=== PATIENT | female | born 1970 | race African-American/Black ===

== ENCOUNTER 2020-05-28 08:14 | Day surgery (SDC) | payer OTHER, SELFPAY ==
[2020-05-28 09:29] VITALS: BMI 20.5
[2020-05-28 09:41] VITALS: PULSE 74; TEMP 36.9
--- NOTE | 2020-05-28 10:06 | P.CONAN_ITS ---
[facility] Past Medical History Medical History GERD (gastroesophageal reflux disease) Irritable bowel syndrome (IBS) Social History Social History Smoking Status: Never smoker Second Hand Smoke Exposure: No Use of substances other than those prescribed or required for medical reasons: No Advance Directives: No Exam Exam Date and Time: May 28, 2020 1006 Height,Weight and Vital Signs: Height 5 ft Weight 47.627 kg Last Vital Signs Temp 98.4 F 05/28/20 09:41 Pulse 74 05/28/20 09:41 Airway Mallampati Class: II TM Dist: >3cm Neck ROM: Full Loose/Missing/Broken Teeth: No Heart: rrr+s1s2 Lungs: cta b/l Assessment and Plan Assessment Anesthesia Assessment: Anesthesia Plan Discussed and Chart Reviewed Final Anesthetic Review NPO: Yes ASA Class: II Final Preanesthetic Review: No Changes in Pt Med Stat, Meds/Allgs Chart Reviewed, Consent Obtained/Reviewed and Anes Risks/Benef Reviewed Patient Risk: Low Procedure Risk: Low Anesthetic Plan Anesthetic Plan: MAC: Disposition: Standard PACU
--- NOTE | 2020-05-28 10:09 | P.CONAN_ITS ---
[facility] Past Medical History Medical History GERD (gastroesophageal reflux disease) Irritable bowel syndrome (IBS) Social History Social History Smoking Status: Never smoker Second Hand Smoke Exposure: No Use of substances other than those prescribed or required for medical reasons: No Advance Directives: No Meds Allergies Allergy/AdvReac Type Severity Reaction Status Date / Time No Known Allergies Allergy Verified 05/28/20 10:08 Exam Exam Date and Time: May 28, 2020 1009 Height,Weight and Vital Signs: Height 5 ft Weight 47.627 kg Last Vital Signs Temp 98.4 F 05/28/20 09:41 Pulse 74 05/28/20 09:41 Airway Mallampati Class: II TM Dist: >3cm Neck ROM: Full Loose/Missing/Broken Teeth: No Heart: rrr+s1s2 Lungs: cta b/l Assessment and Plan Assessment Anesthesia Assessment: Anesthesia Plan Discussed and Chart Reviewed Final Anesthetic Review NPO: Yes ASA Class: II Final Preanesthetic Review: No Changes in Pt Med Stat, Meds/Allgs Chart Reviewed, Consent Obtained/Reviewed and Anes Risks/Benef Reviewed Patient Risk: Low Procedure Risk: Low Anesthetic Plan Anesthetic Plan: MAC: Disposition: Standard PACU
[2020-05-28] MEDS: Lactated Ringers 1,000 ML 50 ML IVCONT (10:10)
--- NOTE | 2020-05-28 10:37 | MHC.SHP ---
Pre-Procedural Eval Section A The patient is an INPATIENT: No The History & Physical has been completed within 30 days and I have reviewed it.: No Section B Chief Complaint: Screening, heart burn Details of Present Illness: NO CHANGES FROM H&P FROM DOES HAVE CHRONIC CONSTIPATION Relevant Family History (Specify if Yes): No Relevant Social History: None Present Medications: None Medical History: No relevant PMH History of Previous Operations: No relevant previous surgery Allergies: Allergies Allergy/AdvReac Type Severity Reaction Status Date / Time No Known Allergies Allergy Verified 05/28/20 10:08 Review of Systems Sugical H&P ROS: Negative: Constitution, Cardiovascular and Respiratory and Yes, Specify: Gastrointestinal (CONSTIPATION) Exam Surgical H&P Exam: Normal: HEENT, Normal: Heart, Normal: Lungs, Normal: Extremities and Normal: Abdomen Plan Diagnosis/Plan: Unchanged Patient has been examined and remains a candidate for the planned procedure--YES
--- NOTE | 2020-05-28 10:40 | P.PCN_ITS ---
Brief Operative Note Date of procedure: 05/28/20 Pre-op diagnosis: Colon cancer screening Post-op diagnosis: other (Flat polyp ascending colon-removed; Large circumferential TUBULOVILLOUS MASS 18-20 CM) Procedure: COLONOSOCPY WITH EPI INJECTION, ORISE INJECTION, ENDO CHRISS TATOOING--ASC COLON POLYP=REMOVED ERBE HOT SNARE POLYPECTOMY IN SEGMENTS WITH HEX AND SMALL HOT SNARE. RETRIEVED, RESOLUTION CLIPPING OF BAS. Anesthesia: MAC and other (Manjit, [employer]; SAVARINI) Surgeon: Eliana Reddy Estimated blood loss (mL): 10 Pathology: other (ascending colon polyp) Condition: stable
[2020-05-28 12:18] VITALS: BP 132/68; PULSE 102; RESP 14; TEMP 35.9; O2SAT 100
[2020-05-28 12:34] VITALS: BP 139/86; PULSE 84; RESP 18; TEMP 36.2; O2SAT 100
[2020-05-28 12:55] LABS: MANUAL DIFF FLAG NO
[2020-05-28 13:12] LABS: Basophils Percent Auto 0.3 % (0-2); Eosinophils Percent Auto 0.6 % (0-4); Hematocrit 37.1 % (37-47); Hemoglobin 12.3 g/dl (12.0-16.0); Imm Gran Abs Auto 0.01 X10*3/uL (0.00-0.03); Imm Gran Pct Auto 0.2 % (0.0-0.4); Lymphocytes Absolute Auto 1.2 X10*3/uL (1.2-4.9); Lymphocytes Percent Auto 18.1 % (20-40); Mean Corpuscular HGB Conc 33.2 g/dl (31.0-35.0); Mean Corpuscular Hemoglobin 31.6 pg (27.0-33.0); Mean Corpuscular Volume 95.4 fL (80-98); Mean Platelet Volume 9.6 fL (9.4-12.3); Monocytes Absolute Auto 0.3 X10*3/uL (0.1-1.2); Monocytes Percent Auto 3.9 % (2-11); Neutrophils Absolute Auto 4.9 X10*3/uL (2.0-8.3); Neutrophils Percent Auto 76.9 % (45-73); Platelet Count 252 X10*3/uL (160-400); Red Blood Count 3.89 X10*6/uL (4.20-5.50); Red Cell Distribution Width 12.4 % (11.0-16.0); White Blood Count 6.4 X10*3/uL (4.8-10.8)
[2020-05-28 13:40] LABS: Alanine Aminotransferase 9 U/L (0-31); Albumin Level 4.2 g/dL (3.5-5.0); Alkaline Phosphatase 55 U/L (39-117); Aspartate Amino Transferase 16 U/L (5-31); Bilirubin Total 0.6 mg/dL (0.0-1.0); Blood Urea Nitrogen 11 mg/dL (9-16); Calcium 8.7 mg/dL (8.4-10.2); Creatinine Clr Calc Pharmacy 72.4; Estimated Glomerular Filt Rate > 60; Glucose Random 99 mg/dL (60-115); Total Protein 6.6 g/dL (6.5-8.0)
[2020-05-28 14:01] LABS: Anion Gap 11 (12-20); Carbon Dioxide 25 mmol/L (22-29); Chloride 105 mmol/L (96-108); Potassium 4.4 mmol/l (3.3-5.1); Sodium 137 mmol/L (135-145)
--- NOTE | 2020-05-29 19:57 | OP_ITS ---
SURGEON: Eliana Reddy MD ESTIMATED BLOOD LOSS: Minimal blood loss. COMPLICATIONS: None. ANESTHESIA: Monitored. ANESTHESIOLOGIST: Tracy Cantu CRNA and Dr. Patrice Simeon.Tracy Cantu CRNA and Dr. Patrice Simeon. ASSISTANTS: No mobile unit assistant. SPECIMENS: Specimen removed; ascending colon polyp. PREOPERATIVE DIAGNOSIS: Colon cancer screening. No history of anemia. No history of rectal bleeding. She does have some constipation. POSTOPERATIVE DIAGNOSES: Ascending colon flat polyp, large tubulovillous or villous adenomatous mass partially circumferential at 18 to 20 cm (not able to remove endoscopically.). LANDFILL GRADER: Dr. Reddy. PROCEDURES PERFORMED: Colonoscopy with hot snare polypectomy x1, segmental resection, epinephrine injection 5 mL, endo marking 3 mL, ORISE elevation 3 mL, Resolution clipping x1, Erbe cautery was used. FINDINGS: Digital rectal exam revealed no specific lesion. Video colonoscope was introduced without difficulty. It was navigated into the rectosigmoid and sigmoid. This area noted a fronding type polyp, which appeared large enough to want to review options on withdrawal of the scope. Scope slowly passed through descending, transverse, ascending colon down into the cecum. Appendiceal orifice was seen. Ileocecal valve was well seen. Several maneuvers, had to be done moving patient from her left side to her back to facilitate movement through the transverse colon and above. Prep was good to excellent. As we withdrew from the region of the cecum, there was an approximately 0.8 to 1 cm polyp noted in the proximal region of ascending colon. This area made polypectomy somewhat more difficult. Originally, the polyp was approached with submucosal epinephrine injection and blanching. There needed to be additional elevation of the flat polyp; so ORISE submucosally was injected as well (approximately 3 mL.) Hot snare Erbe cautery removal was done with the use of the Hex snare and the Small hot snare. Specimens retrieved. Due to the difficulty of managing this area, the decision was made to reappose the base of the polyp with resolution clipping. Region of the polyp was endo marked, Endo marked tattooing was done. Further withdrawal, we came back to the area of initial concern of a large polyp to realize that this was a very large somewhat creeping broad based tubulovillous or villous adenoma circumferentially taking up 2/3 of the lumen. This area was between 18 and 20 cm. It will need to be re-approached surgically. On further withdrawal, anorectal verge was clear. PLAN: Findings were discussed with the patient. Laboratory testing was done. The patient is not anemic and CEA was not elevated. I have discussed the case with Dr. Fleming, (Surgery). I will coordinate care to include pre followup visits and scheduling CAT scan of the abdomen and pelvis. GRAFT OR IMPLANTS: No grafts. CONDITION: Postprocedure, stable. Eliana Reddy MD MEN/MODL / [id number] MTDRajinder
== END 2020-05-28 13:33 | disposition home or self-care (01) ==
PROVIDERS: PCP Internal Medicine; Visit Provider Internal Medicine Gastroenterology
PROC: (CPT 45385; principal; 2020-05-28 10:10)
DX: Z12.11 Encounter for screening for malignant neoplasm of colon (principal); D12.2 Benign neoplasm of ascending colon; K63.9 Disease of intestine, unspecified; K58.1 Irritable bowel syndrome with constipation; K21.9 Gastro-esophageal reflux disease without esophagitis; K29.50 Unspecified chronic gastritis without bleeding; B96.81 Helicobacter pylori [H. pylori] as the cause of diseases classified elsewhere
CPT/HCPCS: 45385; 45381; 36415; 80048; 80053; 82040; 82247; 82378; 82465; 82977; 83615; 84075; 84100; 84155; 84450; 84460; 84478; 84550; 85025; 88305; 88342; J0171

== ENCOUNTER 2020-06-27 11:40 | Outpatient (REF) | payer OTHER, SELFPAY ==
--- NOTE | 2020-06-27 07:23 | CT_ITS ---
EXAMINATION: CT ABDOMEN AND PELVIS WITH CONTRAST CLINICAL INFORMATION: Neoplasm of sigmoid colon. COMPARISON: None TECHNIQUE: Multidetector volumetric images were obtained from the superior aspect of the liver through the pubic symphysis following administration 85 mL of Omnipaque 350 intravenous contrast. Sagittal and coronal reformatted images were obtained on the technologist's workstation. Oral contrast: Yes This CT examination was performed using dose optimization techniques as appropriate, variously including the following: *Automated exposure control *Adjustment of mA and/or kV according to patient size (this includes techniques or standardized protocols for targeted exams where dose is matched to indication/reason for exam; i.e. extremities or head) *Use of iterative reconstruction technique DLP: 204 mGy-cm FINDINGS: LUNG BASES: The visualized lung bases are unremarkable. LIVER, GALLBLADDER, AND BILIARY TREE: The liver is normal in size, shape, and attenuation. No focal hepatic lesion or biliary ductal dilatation is present. The gallbladder is unremarkable with no evidence of radiopaque gallstones, gallbladder wall thickening, or obvious pericholecystic inflammatory changes. PANCREAS: Unremarkable. SPLEEN: Unremarkable. ADRENAL GLANDS: Unremarkable. KIDNEYS AND URETERS: Multiple small bilateral peripelvic cysts noted. No urinary tract dilatation. No masses or stones. BLADDER: Unremarkable. GASTROINTESTINAL TRACT: Oral contrast was given. However, the contrast does not pass the ascending colon. There is prominent fecal material noted throughout the remaining colon. Cannot exclude mass in the mid sigmoid colon particularly given the history of benign neoplasm of sigmoid colon. See axial image 54 series 3. This area of density in particular measures approximately 3 cm transverse. The ascending colon, transverse colon, and proximal descending colon are unremarkable other than prominent amount of stool. ABDOMINAL WALL: No significant hernia is appreciated. LYMPH NODES: Normal. VASCULAR: Unremarkable. PELVIC VISCERA: Unremarkable. OSSEOUS STRUCTURES: There is some subtle subchondral lucency along the anterior left acetabulum compatible with mild arthrosis. CT/CT abdomen pelvis w con IMPRESSION: 1. Limited evaluation of the sigmoid given the prominent amount of stool and lack of contrast. Cannot exclude mass in the sigmoid particularly given the patient's history. 2. Bilateral peripelvic cysts in the kidneys. 3. Mild arthrosis of the left hip joint.
[2020-06-27] MEDS: iohexoL 350 MG/ML 100 ML INFUS..BTL IV (09:42)
== END 2020-06-27 11:41 | disposition home or self-care (01) ==
LOC: HO.CT 11:40
PROVIDERS: PCP Internal Medicine; Visit Provider Internal Medicine Gastroenterology
DX: D12.5 Benign neoplasm of sigmoid colon (principal)
CPT/HCPCS: 74177; Q9967

== ENCOUNTER → 2020-07-01 09:37 | Outpatient (BNVA) | payer OTHER, SELFPAY | PROVIDERS: PCP Internal Medicine; Referring Provider Internal Medicine; Visit Provider Surgery | DX: Z76.89 Persons encountering health services in other specified circumstances (principal) ==

== ENCOUNTER 2020-07-03 08:41 | Outpatient (REF) | payer OTHER, SELFPAY ==
[2020-07-03 11:08] LABS: MANUAL DIFF FLAG NO
[2020-07-03 11:19] LABS: Basophils Percent Auto 0.5 % (0-2); Eosinophils Absolute Auto 0.1 X10*3/uL (0.0-0.4); Eosinophils Percent Auto 2.1 % (0-4); Hematocrit 41.3 % (37-47); Hemoglobin 13.3 g/dl (12.0-16.0); Lymphocytes Absolute Auto 1.2 X10*3/uL (1.2-4.9); Lymphocytes Percent Auto 28.4 % (20-40); Mean Corpuscular HGB Conc 32.2 g/dl (31.0-35.0); Mean Corpuscular Volume 96.3 fL (80-98); Monocytes Absolute Auto 0.2 X10*3/uL (0.1-1.2); Monocytes Percent Auto 5.6 % (2-11); Neutrophils Absolute Auto 2.7 X10*3/uL (2.0-8.3); Neutrophils Percent Auto 63.4 % (45-73); Platelet Count 268 X10*3/uL (160-400); Red Blood Count 4.29 X10*6/uL (4.20-5.50); Red Cell Distribution Width 12.7 % (11.0-16.0); White Blood Count 4.3 X10*3/uL (4.8-10.8)
[2020-07-03 11:27] LABS: Prothrombin Time 11.7 SEC (10.8-13.0)
[2020-07-03 11:30] LABS: Partial Thromboplastin Time 43.8 SEC (24.1-38.0)
[2020-07-03 11:49] LABS: Cholesterol 245 mg/dL; Glucose Fasting 90 mg/dL (60-99); HDL Cholesterol 104 mg/dL; LDL Cholesterol Calculated 132 mg/dl; Triglycerides 47 mg/dL
[2020-07-03 12:04] LABS: Vitamin D 25-OH Total 23.3 ng/mL (>30)
== END 2020-07-03 08:42 | disposition home or self-care (01) ==
LOC: HO.HMGCLDS 08:41
PROVIDERS: PCP Internal Medicine; Visit Provider Internal Medicine
DX: Z00.01 Encounter for general adult medical examination with abnormal findings (principal); K63.5 Polyp of colon; Z78.0 Asymptomatic menopausal state
CPT/HCPCS: 36415; 80061; 82306; 82947; 85025; 85610; 85730

== ENCOUNTER 2020-07-23 09:13 | Inpatient (IN) | payer OTHER, SELFPAY ==
--- NOTE | 2020-07-18 | ECG_ITS ---
Test Reason : CP Blood Pressure : / mmHG Vent. Rate : 078 BPM Atrial Rate : 078 BPM P-R Int : 120 ms QRS Dur : 078 ms QT Int : 386 ms P-R-T Axes : 060 073 049 degrees QTc Int : 440 ms Normal sinus rhythm Normal ECG When compared with ECG of 21-APR-2012 11:33, No significant change was found Referred By: Caitlyn Guillermo Electronically Signed By:ALL RIDDLE MD
--- NOTE | 2020-07-18 11:55 | P.CONAN_ITS ---
Documented by User: Caitlyn Giullermo 07/18/20 12:42 HPI - Anesthesia Eval Consult details Narrative: 50yo F for Bowel Resection Laparoscopic, Hand Assisted, Poss Stoma s/p Screening colonoscopy 05/28/20 with MAC Patient reports sensitive to pain medication. I require less than most people . [facility] Past Medical History Medical History Annual visit for general adult medical examination with abnormal findings GERD (gastroesophageal reflux disease) Irritable bowel syndrome (IBS) Menopause Ovarian cyst Sigmoid polyp Family History Family History Father No problems noted. Mother No problems noted. Son No problems noted. Daughter No problems noted. Family history of problems with anesthesia: No Surgical History Surgical History History of esophagogastroduodenoscopy (EGD) Hx of colonoscopy No pertinent past surgical history History of Problems with Anesthesia: No (Only MAC anesthesia) Social History Social History Are you a primary home care music therapist to a significant other at home: No Do you presently have visiting nurse or other home services: No Alcohol intake: never Smoking Status: Never smoker Second Hand Smoke Exposure: No Use of substances other than those prescribed or required for medical reasons: No Have you been hit, kicked, punched, or otherwise hurt by someone within the past year? If so, by whom?: No Spiritual Healthcare Practices: none Scientology Healthcare Practices: none Cultural Healthcare Practices: none Advance Directives: No Advance Directives Information Provided: No Advance Directives on File: No Recently lost weight without trying: No Narrative Narrative: No recent illness. >4 mets with walking. Meds Allergies Allergy/AdvReac Type Severity Reaction Status Date / Time No Known Allergies Allergy Verified 07/18/20 12:25 Exam Exam Date and Time: July 18, 2020 1155 Pertinent Lab Results Pertinent Lab Results: Laboratory Tests 05/28/20 07/03/20 12:47 08:47 WBC 4.3 L Hgb 13.3 Hct 41.3 Plt Count 268 Sodium 137 Potassium 4.4 Chloride 105 Carbon Dioxide 25 BUN 11 Creatinine 0.66 Airway Mallampati Class: I TM Dist: >3cm Neck ROM: Full Loose/Missing/Broken Teeth: Yes (1xmolar) Heart: RRR Lungs: CTAB Assessment and Plan Assessment Anesthesia Assessment: Anesthesia Plan Discussed and PAT Visit Documented by User: Sabiha King 07/23/20 10:40 PMFSH Past Medical History Medical History Annual visit for general adult medical examination with abnormal findings GERD (gastroesophageal reflux disease) Irritable bowel syndrome (IBS) Menopause Ovarian cyst Sigmoid polyp Family History Family History Father No problems noted. Mother No problems noted. Son No problems noted. Daughter No problems noted. Surgical History Surgical History History of esophagogastroduodenoscopy (EGD) Hx of colonoscopy No pertinent past surgical history Social History Social History Are you a primary home care music therapist to a significant other at home: No Do you presently have visiting nurse or other home services: No Alcohol intake: never Smoking Status: Never smoker Second Hand Smoke Exposure: No Use of substances other than those prescribed or required for medical reasons: No Have you been hit, kicked, punched, or otherwise hurt by someone within the past year? If so, by whom?: No Spiritual Healthcare Practices: none Scientology Healthcare Practices: none Cultural Healthcare Practices: none Advance Directives: No Advance Directives Information Provided: No Advance Directives on File: No Recently lost weight without trying: No Meds Allergies Allergy/AdvReac Type Severity Reaction Status Date / Time No Known Allergies Allergy Verified 07/18/20 12:25 Exam Height,Weight and Vital Signs: Height 5 ft Weight 48.5 kg Vital Signs Temp Pulse Resp BP Pulse Ox 07/23/20 09:07 98.4 F 95 16 142/86 H 100 Pertinent Lab Results Pertinent Lab Results: Lab Results 07/18/20 07/23/20 Range/Units 12:36 08:52 COVID-19 (KEN) Negative (Negative) COVID-19 Clin Com See Note Blood Type O Positive Antibody Screen NEGATIVE Assessment and Plan Assessment Anesthesia Assessment: Anesthesia Plan Discussed and Chart Reviewed Final Anesthetic Review NPO: Yes ASA Class: II Final Preanesthetic Review: No Changes in Pt Med Stat, Meds/Allgs Chart Reviewed, Consent Obtained/Reviewed and Anes Risks/Benef Reviewed Patient Risk: Low Procedure Risk: Intermediate Anesthetic Plan Anesthetic Plan: GA Disposition: Standard PACU
[2020-07-18 11:56] VITALS: BP 137/67; PULSE 81; RESP 16; O2SAT 100; BMI 20.9
[2020-07-23] VITALS (10 sets, daily range): BP systolic 113–154; BP diastolic 54–91; PULSE 66–95; RESP 16–19; TEMP 36–36.9; O2SAT 96–100
--- NOTE | 2020-07-23 08:21 | PC.NURSE ---
patient finished the po prep but had vomited some. also the day before antibiotics were taken and she vomited those as well .md guy aware. do not give the erythromycin or the neomycin per md guy.
[2020-07-23 09:26] LABS: COVID-19 Test Negative (Negative)
[2020-07-23] MEDS: Lactated Ringers 1,000 ML 100 ML IVCONT (09:26)
--- NOTE | 2020-07-23 12:04 | MHC.SHP ---
Pre-Procedural Eval Section B Chief Complaint: Sigmoid polyp Allergies: Allergies Allergy/AdvReac Type Severity Reaction Status Date / Time No Known Allergies Allergy Verified 07/18/20 12:25 Plan Patient has been examined and remains a candidate for the planned procedure
--- NOTE | 2020-07-23 12:17 | PC.NURSE ---
patient has been delayed due to md brooks being in another case. patient aware of plan and continues to rest comfortably.
--- NOTE | 2020-07-23 15:16 | PM.OP ---
Brief Operative Note Date of Service: 07/23/20 Pre-op diagnosis: sigmoid polyp Post-op diagnosis: same Procedure: hand assisted laparoscopic sigmoid resection Surgeon: PER BLANCAS MD Anesthesia: LAURA Clinician Oncology: Joyce Escobedo Estimated blood loss (mL): 50 IV fluids (mL): 1,100 Urine output (mL): 75 Pathology: other (sigmoid) Condition: stable Disposition: PACU
[2020-07-23] MEDS: HYDROmorphone HCl 0.5 MG/0.5 ML SYRINGE 0.25 MG IVPUSH ×2 (15:40→15:45)
--- NOTE | 2020-07-23 16:40 | PM.EVENT ---
Event Note Date of Service: 07/23/20 Event Note: seen postop underwent sigmoid resection earlier says she is ok has incisional pain, appropriate to procedure stable VS Singh clear, good OU pain mgt ok for clear liquids dw her daughter Soledad over the phone
[2020-07-23] MEDS: 0.9 % Sodium Chloride Flush 3 ML SYRINGE IVFLUSH (17:08)
[2020-07-23] MEDS: Lactated Ringers 1,000 ML 80 ML IVCONT (17:08)
--- NOTE | 2020-07-24 00:06 | OP_ITS ---
SURGEON: Alejandro Fleming MD INDICATIONS: The patient is a [id number] who had undergone colonoscopy for screening with Dr. Reddy which showed a circumferential lesion in the sigmoid somewhere around the level 18 cm. Review of her records showed that no biopsy was done, but the mass was noted to be circumferential and not endoscopically resectable. She was referred to me. I had a long discussion with the patient about the procedure of resection. Discussed with the technique of hand-assisted laparoscopic sigmoid resection with possible conversion to open and possible stoma. I explained to her the risks including, but not limited to bleeding, infections, anastomotic leak, abscesses, blood clots, pneumonia, bowel injury, obstruction, as well as benefits and alternatives. She understood and had given consent. Her daughter, Slim, was involved during the discussion. PREOPERATIVE DIAGNOSIS: Sigmoid mass, no biopsies, done by previous endoscopies. POSTOPERATIVE DIAGNOSIS: Sigmoid mass, no biopsies, done by previous endoscopies. PROCEDURE PERFORMED: ESTIMATED BLOOD LOSS: COMPLICATIONS: ANESTHESIA: ASSISTANTS: SPECIMENS: PROCEDURES PERFORMED: Hand assisted laparoscopic sigmoid resection with mobilization of splenic flexure, Intraoperative flexible sigmoidoscopy. ARCHERY EQUIPMENT REPAIRER: Joyce Escobedo PA-C. DESCRIPTION OF PROCEDURE: The patient was brought to the operating room and placed in modified lithotomy position in the operating room under general anesthesia via endotracheal tube. A Singh catheter was inserted. The abdomen and the perineum were prepped and draped in usual sterile fashion. A surgical time-out was done. The patient received Cefotan 2 g IV preoperatively. A short infraumbilical midline incision made in the skin using blade 15, carried down to full-thickness skin and subcutaneous fat down to the fascia. The fascia was incised. The peritoneum was entered. The fascial incision was lengthened to optimize the skin incision. An Laron wound retractor was then positioned. A hand port was placed, we inter plated through the hand port to a pressure of 15 mmHg. A 10 mm 30-degree camera was inserted through the hand ports. With laparoscopic visualization, we inserted 10 mm port in the epigastric area as well as the right lower quadrant through a small stab incision. The port on the hand port was then removed. The patient was placed in head down in right side down position. My left hand was then placed with the GelPort. We proceeded with laparoscopic visualization through the epigastric port. We proceeded to gently reflect all the bowel loops away from the pelvis. By doing so, I was able to visualize the rectum, sigmoid, and to follow this all the way to the left colon. There was noted to have circumferential lesion palpable in the what appeared to be mid to distal sigmoid. At this point, with all the bowel loops, we retracted away from the pelvis, proceeded to open up the peritoneum of the right side to the right of the rectosigmoid. This was achieved using the LigaSure, we proceeded to continue to divide this peritoneum distally to the proximal rectum. Proceeded to then divide the peritoneum more proximally towards the sigmoid. By doing so, we were able to achieve mobilization of the rectosigmoid and the proximal sigmoid. We proceeded to open the planes of the peritoneum as well on the left side in doing the same technique. I then proceeded to mobilize the rest of the sigmoid from the pelvic sidewall. This was achieved using the LigaSure. We divided the ligamentous attachment along the white line of Toldt as well all the way to the left colon. By doing so, we were able to open up the planes of the retroperitoneum of the left colon and achieve good mobilization all the way to the sigmoid. We tested the length of the sigmoid that we resected and appeared that we had enough length; however to make sure that there was no tension, I proceeded to continue to divide the rest of the ligamentous attachments all the way to the splenic flexure using the LigaSure with care being taken, so as to make sure that we were away from the wall of the splenic flexure. We achieved more length from the left colon using this. It appeared that we had good enough mobilization and length of the entire left colon, flexure as well as the sigmoid. We retracted the sigmoid to put this on rectosigmoid on stretch. We proceeded to continue to bluntly dissect the rest of the peritoneum and mobilize more of the rectosigmoid. We were able to clearly define the mesorectum and we appeared to create a mesenteric defect at the rectosigmoid area using blunt dissection and sharp dissection with the LigaSure. We made sure that both sides of the rectosigmoid laterally were well mobilized. We then proceeded to apply the Endo ZOHREH 60 mm stapler through the right lower quadrant port and proceeded to position this across the mesenteric defect. This was 60 mm ZOHREH laparoscopic stapler. We have difficulty however with including the entire rectosigmoid within the staple lines. I therefore, opened up, I removed the GelPort and applied retractor on the abdominal wall to allow me to angle the ZOHREH stapler well across the rectosigmoid, but this was fired. However, there was lot of thick attachment of mesorectum that was not resected with the initial stapler, so we had to fire a 30 mm stapler across this twice to complete the transection of the thick mesorectum. We were able to pull up the entire sigmoid out into the field as this had been previously mobilized all the way to the splenic flexure. We appeared to have enough length to resect the sigmoid near the left colon and create an end-to-end anastomosis. I chose a point of dissection in the proximal sigmoid near the left colon. The sigmoid appeared to be redundant. I transected this using a ZOHREH 60 mm stapler along the point of dissection that was chosen through a mesenteric defect. We then proceeded to divide the rest of the peritoneum to connect the proximal distal segments. After incising the peritoneum, we completed division of the mesosigmoid by generous division of the mesosigmoid along with its lymph node basin. I had to apply the LigaSure twice on what appeared to be LUÍS to achieve good hemostasis. We then proceeded. We were able to complete the separation of the entire sigmoid, so we will send this as a specimen for immediate gross exam The prepared for our end-to-end anastomosis. I applied Allis clamps on the staple line of the proximal sigmoid/left colon stump. I divided this and retracted the wall with Allis clamps again. I dilated this with dilator starting from 25 mm to 28 mm. I then chose a 28 mm EEA stapler apparatus. I created my pursestring anastomosis with nylon 2-0 stitch. I positioned the anvil through the stump and tightened the pursestring around the anvil. This was then positioned back into the peritoneal cavity. The industrial hire sales assistant, KALIN Shipley, then proceeded to apply the dilator to the rectal stump. The dilator was placed first and we were able to see the stump well without any difficulty. She then replaced the dilator with the EEA stapler. This was advanced gently all the way to the end of the stump. With constant pressure on the rectal stump, we proceeded to then connect the anvil to the spike of the EEA stapler after this had been activated through the stump. We locked the anvil into the spike. EEA stapler was then tightened by the first aid teacher all the way. The stapler was fired to complete the anastomosis, the EEA stapler was removed and examined. Two anastomotic circumferential full donuts were seen. With the laparoscope in place, proceeded to immerse the anastomotic line with irrigation fluid. We then used the bulb syringe to insufflate through the rectum until the remaining sigmoid/left colon was distended. We observed for evidence of any anastomotic leak. There was no bubbling seen despite insufflation multiple times with the bulb syringe. I then proceeded to examine the staple line with flexible sigmoidoscope. The first aid teacher had this procedure done by inserting the scope through the anal orifice and gently advancing the patient until we were able to see the staple line. Photographic documentation of the staple line was done, but this appeared to be patent and viable without any evidence of ischemia. She then withdrew the scope and insufflated with withdrawal. We then proceeded to examine again the entire abdominal peritoneal cavity laparoscopically. I checked the anastomosis and there was no tension on this. There was no twisting of the left colon towards the anastomotic site. We copiously irrigated the pelvis and observed for hemostasis. There were no signs of any bleeding or any bowel injury. The left gutter was also noted to be dry and there was no bleeding from the area of the splenic flexure. We observed all four quadrants and there was no other pathology. We received a phone call from the pathologist confirming the presence of the the specimen that was submitted. Margins appeared to be clear and adequate grossly. Once hemostasis was ensured, proceeded to then desufflate the port sites. I removed the GelPort and removed all ports under vision earlier with the laparoscope. I then proceeded to remove the Laron wound retractor and applied Johanny clamps on the fascia. Using the Johanny clamps as a guide for traction, proceeded to then close the fascia with running Maxon 1 stitch. We irrigated the subcutaneous layer. All incisions were closed with skin sera. All incisions were infiltrated with Marcaine 0.5% for postop analgesia. The procedure was then completed. The patient tolerated the procedure well. There were no complications noted. Initial and final counts of sponges and instruments were correct. Estimated blood loss about 25 mL. The patient extubated without difficulty and transferred to recovery room stable with vital signs. MD KENNETH Rachel/ADALBERTO / [id number] MTDD
[2020-07-24] MEDS: Lactated Ringers 1,000 ML 80 ML IVCONT ×2 (03:06→14:43)
[2020-07-24 03:48] VITALS: BP 116/67; PULSE 84; RESP 19; TEMP 36.3; O2SAT 98
[2020-07-24 07:12] LABS: MANUAL DIFF FLAG NO
[2020-07-24 07:31] LABS: Basophils Percent Auto 0.1 % (0-2); Imm Gran Abs Auto 0.03 X10*3/uL (0.00-0.03); Imm Gran Pct Auto 0.3 % (0.0-0.4); Lymphocytes Percent Auto 8.7 % (20-40); Mean Corpuscular HGB Conc 33.3 g/dl (31.0-35.0); Mean Corpuscular Hemoglobin 31.6 pg (27.0-33.0); Mean Corpuscular Volume 94.8 fL (80-98); Mean Platelet Volume 9.9 fL (9.4-12.3); Monocytes Absolute Auto 0.7 X10*3/uL (0.1-1.2); Monocytes Percent Auto 5.9 % (2-11); Neutrophils Absolute Auto 9.6 X10*3/uL (2.0-8.3); Platelet Count 226 X10*3/uL (160-400); Red Blood Count 3.48 X10*6/uL (4.20-5.50); Red Cell Distribution Width 12.9 % (11.0-16.0); White Blood Count 11.3 X10*3/uL (4.8-10.8)
[2020-07-24 07:35] VITALS: BP 140/70; PULSE 90; RESP 16; TEMP 36.4; O2SAT 99
--- NOTE | 2020-07-24 08:00 | PM.PNGS ---
Subjective Subjective Date of Service: 07/24/20 <Joyce Escobedo PA-C - Last Filed: 07/24/20 08:03> 07/24/20 <Alejandro Fleming MD - Last Filed: 07/24/20 08:17> Interval history: Feels sore this morning but comfortable with analgesics. Tolerated small amount of juice last night. Denies nausea, vomiting or passing flatus. Has not been OOB. <Joyce Escobedo PA-C - Last Filed: 07/24/20 08:03> Physical Exam Vital Signs: Vital Signs: Last Vital Signs Temp 97.5 F 07/24/20 07:35 Pulse 90 07/24/20 07:35 Resp 16 07/24/20 07:35 BP 140/70 H 07/24/20 07:35 Pulse Ox 99 07/24/20 07:35 Body Mass Index 20.9 <JAVIER Shipley Last Filed: 07/24/20 08:03> Const: General: healthy appearing, comfortable, no acute distress and alert <Joyce Escobedo PA-C - Last Filed: 07/24/20 08:03> Orientation/consciousness: patient oriented x3 <JAVIER Shipley Last Filed: 07/24/20 08:03> Eyes: Sclerae: sclerae normal <JAVIER Shipley Last Filed: 07/24/20 08:03> Resp: Effort & Inspection: normal respiratory effort <JAVIER Shipley Last Filed: 07/24/20 08:03> GI: Inspection: No distended and Yes incision (dressings C/d/i) <JAVIER Shipley Last Filed: 07/24/20 08:03> Palpation (GI): Soft to palpation, Tenderness to palpation present (GI) (mild, incisional), no guarding, not rigid and No Rebound tenderness present <JAVIER Shipley Last Filed: 07/24/20 08:03> Skin: General skin exam: no rashes or lesions noted <JAVIER Shipley Last Filed: 07/24/20 08:03> Neuro: General: patient oriented x3 <Joyce Escobedo PA-C - Last Filed: 07/24/20 08:03> Extrem: General: Yes no clubbing, cyanosis or edema <JAVIER Shipley Last Filed: 07/24/20 08:03> Progress Note: A&P Assessment and plan (1) Sigmoid polyp: Status: Acute <Joyce Escobedo PA-C - Last Filed: 07/24/20 08:03> (2) S/P laparoscopic-assisted sigmoidectomy: Status: Acute <Joyce Escobedo PA-C - Last Filed: 07/24/20 08:03> Assessment and Plan: POD #1 s/p WEI sigmoid resection. Doing well post op, comfortable. VSS. Abd exam benign with appropriate post op tenderness, dressings c/d/i. AM labs pending. D/c freedman. Cont clear liquids for now. Encouraged OOB and ambulation. Await return of GI fxn. Await pathology. <Joyce Escobedo PA-C - Last Filed: 07/24/20 08:03> Says she has good pain control Incisional pain, appropriate to procedure Abdomen soft Clinically looks well Await return of GI function Ambulate Instructed on incentive spirometry Patient seen and examined -agree with KALIN Escobedo <Alejandro Fleming MD - Last Filed: 07/24/20 08:17> Fall Risk Details Current Medications: Current Medications Generic Name Dose Route Start Last Admin Trade Name Freq PRN Reason Stop Dose Admin Heparin Sodium (Porcine) 5,000 unit 07/24/20 18:00 Heparin Sodium,Porcine 5,000 Unit/Ml Vial SUBCUT Q8H ENRIQUE Hydromorphone HCl 0.25 mg 07/23/20 15:35 07/23/20 15:45 Hydromorphone Hcl 0.5 Mg/0.5 Ml Syringe IVPUSH 0.25 mg Q5M PRN Administration Pain, Severe (Pain Scale 7-10) Lactated Ringer's 1,000 mls @ 80 mls/hr 07/23/20 16:31 07/24/20 03:06 Lr IVCONT 80 mls/hr .[id number] ENRIQUE Administration Acetaminophen 1,000 mg in 100 mls @ 400 mls/hr 07/23/20 21:00 07/24/20 03:19 Ofirmev IV Infused Q6H ENRIQUE Infusion Morphine Sulfate 3 mg 07/23/20 16:31 Morphine Sulfate 2 Mg/Ml Cartridge IVPUSH Q3H PRN Pain, Severe (Pain Scale 7-10) Ondansetron HCl 4 mg 07/23/20 16:31 Ondansetron Hcl 4 Mg/2 Ml Vial IVPUSH Q8H PRN Nausea and Vomiting Oxycodone HCl 5 mg 07/23/20 16:31 Oxycodone Hcl Immed Release 5 Mg Tablet PO Q4H PRN Pain, Moderate (Pain Scale 4-6 Sodium Chloride 3 ml 07/23/20 16:31 07/24/20 07:44 0.9 % Sodium Chloride Flush 3 Ml Syringe IVFLUSH Not Given QSHIFT ENRIQUE <Joyce Escobedo PA-C - Last Filed: 07/24/20 08:03> Time Spent With Patient Time: Total time spent is greater than 50% in coordination of care (as documented) at patient's floor/unit and/or counseling patient: <Joyce Escobedo PA-C - Last Filed: 07/24/20 08:03> Time with patient: 15 - 24 minutes <Joyce Escobedo PA-C - Last Filed: 07/24/20 08:03>
[2020-07-24 08:05] LABS: Anion Gap 13 (12-20); Blood Urea Nitrogen 7 mg/dL (9-16); Calcium 8.4 mg/dL (8.4-10.2); Carbon Dioxide 23 mmol/L (22-29); Chloride 107 mmol/L (96-108); Creatinine Clr Calc Pharmacy 73.5; Estimated Glomerular Filt Rate > 60; Glucose Fasting 112 mg/dL (60-99); Sodium 139 mmol/L (135-145)
--- NOTE | 2020-07-24 08:05 | PC.NURSE ---
JOSÉ MIGUEL SEARS. DTV #[id number]
[2020-07-24 11:22] VITALS: BP 127/77; PULSE 76; RESP 16; TEMP 36.4; O2SAT 98
--- NOTE | 2020-07-24 12:33 | HO.POSTANES ---
Post Anesthesia Evaluation Post Anesthesia Evaluation Vital Signs: Vital Signs Temp Pulse Resp BP Pulse Ox 07/24/20 11:22 97.5 F 76 16 127/77 98 07/24/20 07:35 97.5 F 90 16 140/70 H 99 07/24/20 03:48 97.4 F 84 19 116/67 98 Anesthesia: General Endotracheal-GETA Mental Status: Awake Pain Control: Satisfactory Nausea/Vomiting: None Hydration: Adequate Anesthesia-Related Issues: No Anes. Related Issues
--- NOTE | 2020-07-24 14:56 | MHC.CM.PN ---
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 PT REPORTS SHE CONT'S TO SEE PCP BARBARA BURGOS ON [address] IN [place], PT DOES REPORT INTEREST IN HCP AND WOULD LIKE TO COMPLETE BEFORE DISCHARGE. CURRENT DISCHARGE PLAN IS HOME W/NO SERVICES.
[2020-07-24 15:23] VITALS: BP 136/82; PULSE 85; RESP 17; TEMP 36.9; O2SAT 100
[2020-07-24] MEDS: Heparin Sodium,Porcine 5,000 UNIT/ML VIAL 5000 UNIT SUBCUT (17:14)
[2020-07-24 19:30] VITALS: BP 148/77; PULSE 70; RESP 17; TEMP 37.1; O2SAT 100
[2020-07-24] MEDS: 0.9 % Sodium Chloride Flush 3 ML SYRINGE IVFLUSH (20:58)
[2020-07-25 00:03] VITALS: BP 113/68; PULSE 73; RESP 16; TEMP 37.1; O2SAT 98
[2020-07-25] MEDS: Heparin Sodium,Porcine 5,000 UNIT/ML VIAL 5000 UNIT SUBCUT ×3 (01:17→17:20)
[2020-07-25] MEDS: oxyCODONE HCl Immed Release 5 MG TABLET PO ×2 (01:17→23:02)
[2020-07-25 04:00] VITALS: BP 98/54; PULSE 73; RESP 16; TEMP 36.9; O2SAT 97
[2020-07-25] MEDS: Lactated Ringers 1,000 ML 80 ML IVCONT ×2 (05:28→16:04)
--- NOTE | 2020-07-25 07:58 | PM.PNGS ---
Subjective Subjective Date of Service: 07/25/20 <Joyce Escobedo PA-C - Last Filed: 07/25/20 08:02> 07/25/20 <Alejandro Fleming MD - Last Filed: 07/25/20 11:01> Interval history: Feels ok this morning. Had a difficulty time sleeping due to pain. Reports pain at flanks/upper abdomen which extends to shoulders. Has been OOB and ambulating. Tolerating clear liquids without N/V. Passing flatus. <Joyce Escobedo PA-C - Last Filed: 07/25/20 08:02> Physical Exam Vital Signs: Vital Signs: Last Vital Signs Temp 98.4 F 07/25/20 04:00 Pulse 73 07/25/20 04:00 Resp 16 07/25/20 04:00 BP 98/54 L 07/25/20 04:00 Pulse Ox 97 07/25/20 04:00 Body Mass Index 20.9 <Joyce Escobedo PA-C - Last Filed: 07/25/20 08:02> Const: General: comfortable, no acute distress and alert <Joyce Escobedo PA-C - Last Filed: 07/25/20 08:02> Orientation/consciousness: patient oriented x3 <JAVIER Shipley Last Filed: 07/25/20 08:02> Eyes: Sclerae: sclerae normal <Joyce Escobedo PA-C - Last Filed: 07/25/20 08:02> Resp: Effort & Inspection: normal respiratory effort <Joyce Escobedo PA-C - Last Filed: 07/25/20 08:02> Cardio: Rate: regular rate <JAVIER Shipley Last Filed: 07/25/20 08:02> GI: Inspection: No distended and Yes incision (clean) <JAVIER Shipley Last Filed: 07/25/20 08:02> Palpation (GI): Soft to palpation, Tenderness to palpation present (GI) (mild, incisional), no guarding and No Rebound tenderness present <JAVIER Shipley Last Filed: 07/25/20 08:02> Skin: General skin exam: no rashes or lesions noted <Joyce Escobedo PA-C - Last Filed: 07/25/20 08:02> Neuro: General: patient oriented x3 <JAVIER Shipley Last Filed: 07/25/20 08:02> Extrem: General: Yes no clubbing, cyanosis or edema <Joyce Escobedo PA-C - Last Filed: 07/25/20 08:02> Progress Note: A&P Assessment and plan (1) S/P laparoscopic-assisted sigmoidectomy: Status: Acute <JAVIER Shipley Last Filed: 07/25/20 08:02> Assessment and Plan: POD #2 WEI sigmoid resection. Continues to do well post op but complaining of referred pain. VSS. Abd exam benign and incisions clean. Will advance to full liquids. Encouraged OOB and ambulation of halls. Await pathology. <Joyce Escobedo PA-C - Last Filed: 07/25/20 08:02> Doing well Says she has passed small amounts of flatus Pain control adequate She describes pain on the left flank radiating to the left shoulder consistent with referred pain Ambulating Looks well Await path seen and examined -I agree with KALIN Escobedo daughter Soledad hair <Alejandro Fleming MD - Last Filed: 07/25/20 11:01> (2) Sigmoid polyp: Status: Acute <Joyce Escobedo PA-C - Last Filed: 07/25/20 08:02> Fall Risk Details Current Medications: Current Medications Generic Name Dose Route Start Last Admin Trade Name Freq PRN Reason Stop Dose Admin Heparin Sodium (Porcine) 5,000 unit 07/24/20 18:00 07/25/20 01:17 Heparin Sodium,Porcine 5,000 Unit/Ml Vial SUBCUT 5,000 unit Q8H ENRIQUE Administration Lactated Ringer's 1,000 mls @ 80 mls/hr 07/23/20 16:31 07/25/20 05:28 Lr IVCONT 80 mls/hr .[id number] ENRIQUE Administration Acetaminophen 1,000 mg in 100 mls @ 400 mls/hr 07/23/20 21:00 07/25/20 03:59 Ofirmev IV Infused Q6H ENRIQUE Infusion Morphine Sulfate 3 mg 07/23/20 16:31 Morphine Sulfate 2 Mg/Ml Cartridge IVPUSH Q3H PRN Pain, Severe (Pain Scale 7-10) Ondansetron HCl 4 mg 07/23/20 16:31 Ondansetron Hcl 4 Mg/2 Ml Vial IVPUSH Q8H PRN Nausea and Vomiting Oxycodone HCl 5 mg 07/23/20 16:31 07/25/20 01:17 Oxycodone Hcl Immed Release 5 Mg Tablet PO 5 mg Q4H PRN Administration Pain, Moderate (Pain Scale 4-6 Sodium Chloride 3 ml 07/23/20 16:31 07/24/20 20:58 0.9 % Sodium Chloride Flush 3 Ml Syringe IVFLUSH 3 ml QSHIFT ENRIQUE Administration <Joyce Escobedo PA-C - Last Filed: 07/25/20 08:02> Time Spent With Patient Time: Total time spent is greater than 50% in coordination of care (as documented) at patient's floor/unit and/or counseling patient: <Joyce Escobedo PA-C - Last Filed: 07/25/20 08:02> Time with patient: 15 - 24 minutes <Joyce Escobedo PA-C - Last Filed: 07/25/20 08:02>
[2020-07-25 08:00] VITALS: BP 126/70; PULSE 77; RESP 16; TEMP 36.2; O2SAT 100
[2020-07-25 11:35] VITALS: BP 149/73; PULSE 72; RESP 15; TEMP 36.3; O2SAT 100
--- NOTE | 2020-07-25 13:55 | MHC.CM.PN ---
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 MET WITH PATIENT FEELING SOME WHAT BETTER TODAY , PAIN MORE MANAGEABLE , DID NOT SLEEP WELL LAST NIGHT SECONDARY TO PAIN, PASSING FLATUS AND OOB AND Ambulating s/p hand assist laparoscopic sigmoid resection and mobilization,of splenic flexure inta operative flexible sigmoidoscopy , pathology pending discharge plan continue to follow for any changes in discharge needs but anticipate home no services (has siater and daughter aviable for support
--- NOTE | 2020-07-25 14:56 | MHC.CM.PN ---
MET W/PT TO ASSIST W/HCP, PT DID NOT HAVE ALL CONTACT INFO SHE NEEDED, PT CONTACTING DAUGHTER FOR INFO, RN WILL CHECK IN W/PT TO SEE IF SHE RECEIVED CONTACTY INFO SHE NEEDED. PT'S PLAN CONT'S TO BE HOME W/NO SERVICES, FAMILY TO TRANSPORT PT UPON D/C.
[2020-07-25 15:53] VITALS: BP 140/79; PULSE 73; RESP 18; TEMP 36.3; O2SAT 100
[2020-07-25 19:12] VITALS: BP 115/70; PULSE 78; RESP 18; TEMP 36.6; O2SAT 100
[2020-07-25] MEDS: 0.9 % Sodium Chloride Flush 3 ML SYRINGE IVFLUSH (21:31)
[2020-07-26 00:37] VITALS: BP 119/66; PULSE 78; RESP 14; TEMP 36.6; O2SAT 99
[2020-07-26] MEDS: Heparin Sodium,Porcine 5,000 UNIT/ML VIAL 5000 UNIT SUBCUT ×2 (03:09→10:54)
[2020-07-26 04:00] VITALS: BP 132/63; PULSE 67; RESP 14; TEMP 36.2; O2SAT 99
[2020-07-26 07:33] LABS: Hematocrit 28.6 % (37-47); Mean Corpuscular HGB Conc 33.2 g/dl (31.0-35.0); Mean Corpuscular Hemoglobin 31.9 pg (27.0-33.0); Mean Platelet Volume 10.4 fL (9.4-12.3); Platelet Count 183 X10*3/uL (160-400); Red Blood Count 2.98 X10*6/uL (4.20-5.50); Red Cell Distribution Width 12.9 % (11.0-16.0); White Blood Count 5.1 X10*3/uL (4.8-10.8)
[2020-07-26 07:35] LABS: Hemoglobin 9.5 g/dl (12.0-16.0)
[2020-07-26 08:00] VITALS: BP 138/68; PULSE 73; RESP 15; TEMP 36.3; O2SAT 100
--- NOTE | 2020-07-26 08:01 | PM.PNGS ---
Subjective Subjective Date of Service: 07/26/20 <Joyce Escobedo PA-C - Last Filed: 07/26/20 08:05> 07/26/20 <Alejandro Fleming MD - Last Filed: 07/26/20 09:57> Patient reports: no new complaints <JAVIER Shipley Last Filed: 07/26/20 08:05> Interval history: Feels better this morning- still having some pain under ribs but much better. Tolerating full liquids. Passing flatus and had two loose BM. OOB and ambulated halls yesterday. <Joyce Escobedo PA-C - Last Filed: 07/26/20 08:05> Physical Exam Vital Signs: Vital Signs: Last Vital Signs Temp 97.2 F 07/26/20 04:00 Pulse 67 07/26/20 04:00 Resp 14 07/26/20 04:00 BP 132/63 07/26/20 04:00 Pulse Ox 99 07/26/20 04:00 Body Mass Index 20.9 <Joyce Escobedo PA-C - Last Filed: 07/26/20 08:05> Const: General: comfortable, no acute distress and alert <JAVIER Shipley Last Filed: 07/26/20 08:05> Orientation/consciousness: patient oriented x3 <Joyce Escobedo PA-C - Last Filed: 07/26/20 08:05> Eyes: Sclerae: sclerae normal <Joyce Escobedo PA-C - Last Filed: 07/26/20 08:05> Resp: Effort & Inspection: normal respiratory effort <Joyce Escobedo PA-C - Last Filed: 07/26/20 08:05> GI: Inspection: No distended and Yes incision (clean) <JAVIER Shipley Last Filed: 07/26/20 08:05> Palpation (GI): Soft to palpation, Tenderness to palpation present (GI) (mild, incisional), no guarding, not rigid and No Rebound tenderness present <JAVIER Shipley Last Filed: 07/26/20 08:05> Skin: General skin exam: no rashes or lesions noted <Joyce Escobedo PA-C - Last Filed: 07/26/20 08:05> Neuro: General: patient oriented x3 <JAVIER Shipley Last Filed: 07/26/20 08:05> Extrem: General: Yes no clubbing, cyanosis or edema <Joyce Escobedo PA-C - Last Filed: 07/26/20 08:05> Progress Note: A&P Assessment and plan (1) S/P laparoscopic-assisted sigmoidectomy: Status: Acute <Joyce Escobedo PA-C - Last Filed: 07/26/20 08:05> Assessment and Plan: POD #3 WEI sigmoid resection. Doing well post op, comfortable, has return of GI fxn. VSS. Abd exam benign and incisions clean. Will advance to low residue diet. Encouraged OOB and ambulation of halls. Pathology- pending. Possibly home later today or tomorrow if tolerating diet. <Joyce Escobedo PA-C - Last Filed: 07/26/20 08:05> looks well ambulating tolerating full liquids had BMs, flatus abd soft advance diet home when tolerating diet seen and examined - agree with KALIN Escobedo path still pending <Alejandro Fleming MD - Last Filed: 07/26/20 09:57> (2) Sigmoid polyp: Status: Acute <JAVIER Shipley Last Filed: 07/26/20 08:05> Fall Risk Details Current Medications: Current Medications Generic Name Dose Route Start Last Admin Trade Name Freq PRN Reason Stop Dose Admin Heparin Sodium (Porcine) 5,000 unit 07/24/20 18:00 07/26/20 03:09 Heparin Sodium,Porcine 5,000 Unit/Ml Vial SUBCUT 5,000 unit Q8H ENRIQUE Administration Lactated Ringer's 1,000 mls @ 80 mls/hr 07/23/20 16:31 07/26/20 07:27 Lr IVCONT Not Given .[id number] ENRIQUE Acetaminophen 1,000 mg in 100 mls @ 400 mls/hr 07/23/20 21:00 07/26/20 04:11 Ofirmev IV Infused Q6H ENRIQUE Infusion Morphine Sulfate 3 mg 12/08/20 16:31 Morphine Sulfate 2 Mg/Ml Cartridge IVPUSH Q3H PRN Pain, Severe (Pain Scale 7-10) Ondansetron HCl 4 mg 07/23/20 16:31 Ondansetron Hcl 4 Mg/2 Ml Vial IVPUSH Q8H PRN Nausea and Vomiting Oxycodone HCl 5 mg 07/23/20 16:31 07/25/20 23:02 Oxycodone Hcl Immed Release 5 Mg Tablet PO 5 mg Q4H PRN Administration Pain, Moderate (Pain Scale 4-6 Sodium Chloride 3 ml 07/23/20 16:31 07/25/20 21:31 0.9 % Sodium Chloride Flush 3 Ml Syringe IVFLUSH 3 ml QSHIFT ENRIQUE Administration <Joyce Escobedo PA-C - Last Filed: 07/26/20 08:05> Time Spent With Patient Time: Total time spent is greater than 50% in coordination of care (as documented) at patient's floor/unit and/or counseling patient: <Joyce Escobedo PA-C - Last Filed: 07/26/20 08:05> Time with patient: less than 15 minutes <Joyce Escobedo PA-C - Last Filed: 07/26/20 08:05>
[2020-07-26] MEDS: 0.9 % Sodium Chloride Flush 3 ML SYRINGE IVFLUSH (09:38)
--- NOTE | 2020-07-26 10:11 | MHC.CM.PN ---
DISCHARGE PLAN HOME THIS EVENING OR TOMORROW IF PT TOLERATES DIET, PLAN IS HOME SELF-CARE, FAMILY TO TRANSPORT.
--- NOTE | 2020-07-26 10:13 | MHC.CM.PN ---
Addendum entered by Elaina Le RN 07/26/20 10:21: PT DECLINED NEED FOR CERTIFIED OPHTHALMIC TECHNOLOGIST Original Note: HCP: HCP COMPLETED W/PT, AGENT #1 RIKKI ACOSTAKELLEE (SISTER) [phone], AGENT #2 FRANCESCA ACOSTAKELLEE [phone]. COPY UPLOADED THROUGH [employer] AND COPY PLACED IN CHART.
[2020-07-26 12:00] VITALS: BP 136/72; PULSE 80; RESP 16; TEMP 36.7; O2SAT 98
--- NOTE | 2020-07-26 14:01 | PM.EVENT ---
Event Note Date of Service: 07/26/20 Event Note: she continues to feel well tolerating diet has BMs, flatus abd soft, nondistended incisions clean looks well she says she is ready to go home will inform her of path once available dc instructions given
--- NOTE | 2020-07-26 14:06 | MHC.CM.PN ---
DISCHARGE: PT DISCHARGING HOME/SELF-CARE, FAMILY TO TRANSPORT, PT HAS FOLLOW-UP WITH SURGEON, DR. BLANCAS ON 08/05/20.
--- NOTE | 2020-07-29 13:14 | PM.DS ---
DS: Providers Provider Date of admission: 07/23/20 09:13 Primary care physician: Angella Luna MD DS: Diagnosis Discharge Diagnosis (1) S/P laparoscopic-assisted sigmoidectomy: Status: Acute (2) Sigmoid polyp: Status: Acute DS: Medications Discharge Medications Home Medications: Previous Rx's Medication Instructions Recorded cholecalciferol (vitamin D3) 1,250 1,250 mcg PO QWEEK 90 Days #13 cap 07/03/20 mcg (50,000 unit) capsule docusate sodium [Colace] 100 mg PO BID #60 cap 07/26/20 ibuprofen 600 mg PO TID PRN #30 tab 07/26/20 oxycodone-acetaminophen [Percocet] 1 tab PO Q4-6H PRN #20 tab 07/26/20 DS: Summary Hospital Course Hospital Course: BRIEF HPI: The patient is a [id number] who had undergone colonoscopy for screening with Dr. Reddy which showed a circumferential lesion in the sigmoid somewhere around the level 18 cm. Review of her records showed that no biopsy was done, but the mass was noted to be circumferential and not endoscopically resectable. She was therefore referred to Dr. Fleming for further treatment. I had a long discussion with the patient about the procedure of colon resection and the technique of hand-assisted laparoscopic sigmoid resection with possible conversion to open and possible stoma. She presents now for the surgery. Hospital Course:On 07/23/2020, a hand assisted laparoscopic sigmoid resection and intraopertive colonoscopy was performed by Dr. Alejandro Fleming without complication. The patient tolerated the procedure well and was admitted for observation. The patient had an uncomplicated recovery course. On POD#1, she had referred pain but was comfortable with analgesics. She was tolerating clear liquids. Her freedman was removed and she was ambulated. On POD #2, she remained comfortable and she began passing flatus. She was advanced to a full liquid diet. On POD #3, she continued to do well. She had a bowel movement. She was advanced to a low residue diet. Her abdomen remained benign with appropriate post op tenderness and a clean incision. She was reassessed later on in the day and felt ready for discharge. On the day of discharge, she was tolerating a solid diet without N/V, her pain was controlled on PO analgesics and her abdominal exam was benign with a clean incision. She was discharged to home on 07/26/20 in stable condition. Pathology of the specimen is still pending. Status at Discharge Functional status at discharge: independent ambulation Overall status at discharge: patient is progressing back to baseline Time Spent with Patient Time attestation: Total time spent providing and/or coordinating discharge services: Discharge coordination time: Less than 30 minutes Physical Exam Vital Signs: Vital Signs: Last Vital Signs Temp 98.1 F 07/26/20 12:00 Pulse 80 07/26/20 12:00 Resp 16 07/26/20 12:00 BP 136/72 07/26/20 12:00 Pulse Ox 98 07/26/20 12:00 Body Mass Index 20.9 Const: General: healthy appearing, comfortable, no acute distress and alert Orientation/consciousness: patient oriented x3 Eyes: Sclerae: sclerae normal Resp: Effort & Inspection: normal respiratory effort Cardio: Rate: regular rate GI: Inspection: No distended and Yes incision (clean) Palpation (GI): Soft to palpation, Tenderness to palpation present (GI) (mild, incisional), no guarding and No Rebound tenderness present Skin: General skin exam: no rashes or lesions noted Neuro: General: patient oriented x3 Extrem: General: Yes no clubbing, cyanosis or edema DS: Data Data Completed and Pending Pending studies at discharge: Pending at discharge 07/23/20 14:13 Surgical [PTH] Stat Labs on day of discharge: 07/18/20 ECG 12 lead EKG Routine 07/18/20 12:36 Type and Screen Routine 07/23/20 08:13 Acetaminophen [Ofirmev] 1,000 mg in 100 ml IV PREOP 07/23/20 08:15 Lactated Ringers [Lr] 1,000 ml IVCONT 100 mls/hr 07/23/20 08:52 COVID-19 ID NOW ([place]) Stat 07/23/20 09:35 Acetaminophen [Ofirmev] 1,000 mg in 100 ml IV As directed 07/23/20 09:36 cefoTEtan disodium [Cefotan] 2 gm .ROUTE .STK-MED ONE 07/23/20 11:08 Lidocaine HCl 2 % MPF [Xylocaine 2 % MPF] 5 ml .ROUTE .STK-MED ONE Rocuronium Wayan [Zemuron] 100 mg IV .STK-MED ONE propofoL [Diprivan] 200 mg IVPUSH .STK-MED ONE 07/23/20 11:22 Midazolam HCl/PF [Versed] 2 mg .ROUTE .STK-MED ONE fentaNYL citrate/PF [Sublimaze] 50 mcg .ROUTE .STK-MED ONE 07/23/20 12:16 Bupivacaine MPF 0.5 % [Sensorcaine MPF 0.5% 10 ML] 10 ml .ROUTE .STK-MED ONE Lidocaine HCl 1 % MPF [Xylocaine 1 % MPF] 5 ml .ROUTE .STK-MED ONE 07/23/20 13:00 Erythromycin Base 1,000 mg PO 13,14,22 neoMYCIN Sulfate 1,000 mg PO 13,14,22 07/23/20 13:16 dexAMETHasone sod phosphate [Decadron] 4 mg .ROUTE .ST-MED ONE ondansetron HCL [Zofran] 4 mg .ROUTE .STK-[facility] ONE 07/23/20 13:57 fentaNYL citrate/PF [Sublimaze] 50 mcg .ROUTE .[facility]-MED ONE 07/23/20 14:55 Sugammadex Sodium [Bridion] 200 mg IVPUSH .[facility] ONE 07/23/20 15:18 Transfer Order Routine 07/23/20 15:29 Code Status Routine 07/23/20 15:34 fentaNYL citrate/PF [Sublimaze] 100 mcg .ROUTE .[facility] ONE 07/23/20 15:35 HYDROmorphone HCl [Dilaudid] 0.25 mg IVPUSH Q5M PRN 07/23/20 Lunch Clear Liquid Diet 07/23/20 16:31 0.9 % Sodium Chloride Flush [NS Flush] 3 ml IVFLUSH QSHIFT Lactated Ringers [Lr] 1,000 ml IVCONT 80 mls/hr Morphine Sulfate 3 mg IVPUSH Q3H PRN ondansetron HCL [Zofran] 4 mg IVPUSH Q8H PRN oxyCODONE HCl Immed Release [Roxicodone] 5 mg PO Q4H PRN 07/23/20 16:31 Compression Therapy QSHIFT Incentive Spirometry NOW Incentive Spirometry Q8HR Insert/maintain urinary catheter Q8HR 07/23/20 21:00 Acetaminophen [Ofirmev] 1,000 mg in 100 ml IV Q6H 07/24/20 06:43 Basic Metabolic Panel Fasting Routine Complete Blood Count Auto Diff Routine 07/24/20 07:00 cefoTEtan disod/Dextrose,Iso [Cefotan] 2 gm in 50 ml IV PREOP 07/24/20 18:00 Heparin Sodium,Porcine 5,000 unit SUBCUT Q8H 07/25/20 Lunch Full Liquid Diet 07/26/20 06:29 Complete Blood Count no Diff Routine Laboratory Last Values WBC 5.1 X10*3/uL (4.8-10.8) 07/26/20 06:29 RBC 2.98 X10*6/uL (4.20-5.50) L 07/26/20 06:29 Hgb 9.5 g/dl (12.0-16.0) L 07/26/20 06:29 Hct 28.6 % (37-47) L 07/26/20 06:29 MCV 96.0 fL (80-98) 07/26/20 06:29 MCH 31.9 pg (27.0-33.0) 07/26/20 06:29 MCHC 33.2 g/dl (31.0-35.0) 07/26/20 06:29 RDW 12.9 % (11.0-16.0) 07/26/20 06:29 Plt Count 183 X10*3/uL (160-400) 07/26/20 06:29 MPV 10.4 fL (9.4-12.3) 07/26/20 06:29 Immature Gran % (Auto) 0.3 % (0.0-0.4) 07/24/20 06:43 Neut % (Auto) 85.0 % (45-73) H 07/24/20 06:43 Lymph % (Auto) 8.7 % (20-40) L 07/24/20 06:43 [place] % (Auto) 5.9 % (2-11) 07/24/20 06:43 Eos % (Auto) 0.0 % (0-4) 07/24/20 06:43 Baso % (Auto) 0.1 % (0-2) 07/24/20 06:43 Lymph # (Auto) 1.0 X10*3/uL (1.2-4.9) L 07/24/20 06:43 [place] # (Auto) 0.7 X10*3/uL (0.1-1.2) 07/24/20 06:43 Eos # (Auto) 0.0 X10*3/uL (0.0-0.4) 07/24/20 06:43 Baso # (Auto) 0.0 X10*3/uL (0.0-0.2) 07/24/20 06:43 Abs Immat Gran (auto) 0.03 X10*3/uL (0.00-0.03) 07/24/20 06:43 Absolute Neuts (auto) 9.6 X10*3/uL (2.0-8.3) H 07/24/20 06:43 Absolute Nucleated RBC 0.000 X10*3/uL (0.0-0.012) 07/26/20 06:29 Nucleated RBC % (auto) 0.0 /100WBC (0.0-0.2) 07/26/20 06:29 Sodium 139 mmol/L (135-145) 07/24/20 06:43 Potassium 4.0 mmol/l (3.3-5.1) 07/24/20 06:43 Chloride 107 mmol/L (96-108) 07/24/20 06:43 Carbon Dioxide 23 mmol/L (22-29) 07/24/20 06:43 Anion Gap 13 (-20) 07/24/20 06:43 BUN 7 mg/dL (9-16) L 07/24/20 06:43 Creatinine 0.65 mg/dL (0.5-1.4) 07/24/20 06:43 Estim Creat Clear Calc 73.5 07/24/20 06:43 Estimated GFR > 60 07/24/20 06:43 Fasting Glucose 112 mg/dL (60-99) H 07/24/20 06:43 Calcium 8.4 mg/dL (8.4-10.2) 07/24/20 06:43 COVID-19 ([facility]) Negative (Negative) 07/23/20 08:52 COVID-19 Clin Com See Note 07/23/20 08:52 Blood Type O Positive 07/18/20 12:36 Antibody Screen NEGATIVE 07/18/20 12:36 Discharge Plan Discharge Patient Disposition: Home, Self-Care Referrals: Angella Luna MD [Primary Care Provider] - Alejandro Fleming MD [Physician] - 08/05/20 Discharge Medications: New oxycodone-acetaminophen [Percocet] 5-325 mg tablet 1 tab PO Q4-6H PRN (Reason: pain) Qty: 20 RF: 0 ibuprofen 600 mg tablet 600 mg PO TID PRN (Reason: pain) Qty: 30 RF: 0 docusate sodium [Colace] 100 mg capsule 100 mg PO BID Qty: 60 RF: 2 Continued cholecalciferol (vitamin D3) 1,250 mcg (50,000 unit) capsule 1,250 mcg PO QWEEK 90 Days Qty: 13 RF: 0 Discontinued neomycin 500 mg tablet 1 g PO TID Qty: 6 RF: 0 erythromycin 500 mg tablet 1,000 mg PO .COMPLEX Qty: 6 RF: 0 Suprep Bowel Prep Kit 17.5-3.13-1.6 gram recon soln See Rx Instructions PO .COMPLEX Qty: 354 RF: 0 Discharge Orders: Discharge Order (Routine); Ordered 07/26/20 Ordered By: Alejandro Fleming Diet: other Activity on Discharge: No heavy lifting Discharge Date/Time: 07/26/20 15:30 Activity Restrictions/Additional Instructions: If the incision area is tender, you may apply an ice pack for short intervals (No more than 20 minutes on, followed by at least 20 minutes off). Do not apply heat. Do not use creams, lotions, or topical antibiotics unless instructed to do so by your surgeon. These can cause infection or allergic reaction. Ok to shower. You have sera closing your incision and these will be removed approximately 10-14 days after surgery. Call Your Doctor If: -Your temperature exceeds 101.5? F -You experience excessive pain or swelling -You have an unexpected reaction to medication -You have excessive bleeding -You experience continued vomiting/nausea -Your incision begins to separate -Your incision shows signs of infection such as increased redness, swelling, excessive pain, drainage (light blood or clear fluid is normal) or heat Visit Report Forms: Patient Portal Discharge page Care Plan Goals: Return to baseline health and activity. Health Concerns: S/p WEI sigmoid resection for sigmoid polyp Plan of Treatment: Discharge to home with follow up in office
== END 2020-07-26 15:30 | disposition home or self-care (01) | DRG 231 ==
LOC: HO.SSSA 09:42 → HO.S3 10:03
PROVIDERS: Physician Assistant Surgical; Admitting Provider Surgery; PCP Internal Medicine; Visit Provider Surgery
PROC: 0DTN0ZZ Resection of Sigmoid Colon, Open Approach (ICD-10-PCS; principal; 2020-07-23 11:00)
DX: K63.5 Polyp of colon (principal); K21.9 Gastro-esophageal reflux disease without esophagitis; Z20.828 Contact with and (suspected) exposure to other viral communicable diseases; Z79.899 Other long term (current) drug therapy
CPT/HCPCS: 36415; 80048; 85025; 85027; 86850; 86900; 86901; 87635; 88307; 88309; 88329; 88341; 88342; 93005; C1758; J0131; J1100; J1170; J2250; J2405; J3010

== ENCOUNTER → 2020-08-05 09:52 | Outpatient (BNVA) | payer OTHER, SELFPAY | PROVIDERS: PCP Internal Medicine; Visit Provider Surgery | DX: Z76.89 Persons encountering health services in other specified circumstances (principal) ==

== ENCOUNTER → 2020-08-06 07:49 | Outpatient (BNV) | payer OTHER, SELFPAY | PROVIDERS: PCP Internal Medicine; Referring Provider Surgery; Visit Provider Internal Medicine | DX: C18.7 Malignant neoplasm of sigmoid colon (principal) | CPT/HCPCS: 99213; 99214; 99215 ==

== ENCOUNTER 2020-08-19 10:55 | Outpatient (REF) | payer OTHER, SELFPAY ==
--- NOTE | 2020-08-19 10:57 | CT_ITS ---
EXAMINATION: CT CHEST WITH CONTRAST CLINICAL INFORMATION: Colon cancer. Staging. COMPARISON: Abdominal and pelvic CT June 2020 TECHNIQUE: Multidetector volumetric CT imaging of the chest was obtained after the administration of 65 mL of Omnipaque 350 intravenous contrast without immediate adverse reactions. Axial MIP volume rendering provided. Sagittal and coronal reformatted images were obtained. This CT examination was performed using dose optimization techniques as appropriate, variously including the following: *Automated exposure control *Adjustment of mA and/or kV according to patient size (this includes techniques or standardized protocols for targeted exams where dose is matched to indication/reason for exam; i.e. 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 MEDIASTINUM: The mediastinum is normal. PLEURA: There is no pleural effusion. No pleural mass or thickening. AXILLA: No lymphadenopathy. UPPER ABDOMEN: There is low-attenuation seen centrally in the left kidney which when compared with previous abdominal pelvic CT scan probably represents a peripelvic cyst. OSSEOUS STRUCTURES: Unremarkable. CT/CT chest w con IMPRESSION: No evidence of metastatic disease.
[2020-08-19] MEDS: iohexoL 350 MG/ML 100 ML INFUS..BTL 65 ML IV (11:21)
== END 2020-08-19 10:56 | disposition home or self-care (01) ==
LOC: HO.CT 10:55
PROVIDERS: Visit Provider Internal Medicine
DX: C18.7 Malignant neoplasm of sigmoid colon (principal)
CPT/HCPCS: 71260; Q9967

== ENCOUNTER → 2020-09-05 09:57 | Outpatient (BNVA) | payer OTHER, SELFPAY | PROVIDERS: PCP Internal Medicine; Visit Provider Surgery ==

== ENCOUNTER 2020-09-14 13:49 | Outpatient (REF) | payer OTHER, SELFPAY ==
--- NOTE | 2020-09-14 13:52 | MM_ITS ---
EXAMINATION: MM SCREENING DIGITAL BREAST TOMOSYNTHESIS, BILATERAL CLINICAL INFORMATION: Screening. Asymptomatic. The lifetime risk of breast cancer based on the Tyrer-Cuzick Model is 4.6%. COMPARISON: Mammography: July 22, 2019 and studies dating back to October 07, 2011 TECHNIQUE: Digital breast tomosynthesis is performed in both the craniocaudal and mediolateral oblique views along with computer-aided detection (CAD). Synthesized 2D images are generated from the tomosynthesis. FINDINGS: There are scattered areas of fibroglandular density (ACR BI-RADS breast composition Category b). There are no significant masses, abnormal calcifications, or other abnormalities. MM/MM tomosynthesis screening BI IMPRESSION: There are no significant changes from prior study. ASSESSMENT: BI-RADS 1: Negative RECOMMENDATION: Routine annual mammography screening. This patient's information was entered into a reminder system with a target due date for their next mammogram.
== END 2020-09-14 13:50 | disposition home or self-care (01) ==
LOC: HO.MAMMO 13:49
PROVIDERS: PCP Internal Medicine; Visit Provider Internal Medicine
DX: Z12.31 Encounter for screening mammogram for malignant neoplasm of breast (principal)
CPT/HCPCS: 77063; 77067

== ENCOUNTER 2020-11-07 13:51 | Outpatient (REF) | payer OTHER, SELFPAY ==
[2020-11-07 17:17] LABS: Vitamin D 25-OH Total 40.6 ng/mL (>30)
== END 2020-11-07 13:52 | disposition home or self-care (01) ==
LOC: HO.HMGCLDS 13:51
PROVIDERS: PCP Internal Medicine; Visit Provider Internal Medicine
DX: Z78.0 Asymptomatic menopausal state (principal)
CPT/HCPCS: 36415; 82306

== ENCOUNTER → 2020-11-13 09:59 | Outpatient (BNVA) | payer OTHER, SELFPAY | PROVIDERS: PCP Internal Medicine; Visit Provider Surgery ==

== ENCOUNTER 2021-01-23 08:02 | Outpatient (REF) | payer OTHER, SELFPAY ==
--- NOTE | ~2021-01-23 | CT_ITS ---
EXAMINATION: CT ABDOMEN AND PELVIS WITH CONTRAST CLINICAL INFORMATION: Follow-up rectal cancer COMPARISON: Previous CT of the abdomen and pelvis #2020 TECHNIQUE: Multidetector volumetric images were obtained from the superior aspect of the liver through the pubic symphysis following administration of 75 mL of Omnipaque 350 intravenous contrast. Sagittal and coronal reformatted images were obtained on the technologist's workstation. Oral contrast: No This CT examination was performed using dose optimization techniques as appropriate, variously including the following: *Automated exposure control *Adjustment of mA and/or kV according to patient size (this includes techniques or standardized protocols for targeted exams where dose is matched to indication/reason for exam; i.e. extremities or head) *Use of iterative reconstruction technique DLP: 195 mGy-cm FINDINGS: LUNG BASES: The visualized lung bases are unremarkable. LIVER, GALLBLADDER, AND BILIARY TREE: The liver is normal in size, shape, and attenuation. No focal hepatic lesion or biliary ductal dilatation is present. The gallbladder is unremarkable with no evidence of radiopaque gallstones, gallbladder wall thickening, or obvious pericholecystic inflammatory changes. PANCREAS: Unremarkable. SPLEEN: Unremarkable. ADRENAL GLANDS: Unremarkable. KIDNEYS AND URETERS: There are bilateral peripelvic cysts. The kidneys are otherwise unremarkable. BLADDER: Unremarkable. GASTROINTESTINAL TRACT: There are postsurgical changes to the upper rectum or distal sigmoid colon with surgical staple line. There is a large amount stool seen throughout the colon suggestive of constipation. Small and large bowel is otherwise unremarkable. The appendix is unremarkable. The stomach is unremarkable. ABDOMINAL WALL: There are postsurgical changes to the lower abdominal wall. No hernia is seen. LYMPH NODES: Unremarkable. There is no ascites. VASCULAR: Unremarkable. PELVIC VISCERA: Unremarkable OSSEOUS STRUCTURES: Unremarkable. CT/CT abdomen pelvis w con IMPRESSION: New postsurgical changes. Constipation. Bilateral renal peripelvic cysts.
[2021-01-23] MEDS: iohexoL 350 MG/ML 100 ML INFUS..BTL IV (09:21)
== END 2021-01-23 08:03 | disposition home or self-care (01) ==
LOC: HO.CT 08:02
PROVIDERS: Visit Provider Internal Medicine Medical Oncology
DX: C20 Malignant neoplasm of rectum (principal)
CPT/HCPCS: 74177; Q9967

== ENCOUNTER → 2021-05-07 09:59 | Outpatient (BNVA) | payer OTHER, SELFPAY | PROVIDERS: PCP Internal Medicine; Referring Provider Internal Medicine; Visit Provider Surgery ==

== ENCOUNTER 2021-07-04 08:53 | Outpatient (REF) | payer OTHER, SELFPAY ==
[2021-07-04 12:07] LABS: Blood Urea Nitrogen 12 mg/dL (9-16); Cholesterol 228 mg/dL; Estimated Glomerular Filt Rate > 60; HDL Cholesterol 94 mg/dL; LDL Cholesterol Calculated 121 mg/dl; Triglycerides 67 mg/dL
[2021-07-04 12:25] LABS: Folate 15.9 ng/mL (> or = 4.0); Vitamin B12 312 pg/mL (200-900)
[2021-07-04 12:27] LABS: Vitamin D 25-OH Total 25.9 ng/mL (>30)
[2021-07-08 21:16] LABS: HPV mRNA E6/E7 rflx Not Detected (Not Detected)
== END 2021-07-04 08:54 | disposition home or self-care (01) ==
LOC: HO.HMGCLDS 08:53
PROVIDERS: PCP Internal Medicine; Visit Provider Internal Medicine
DX: Z01.419 Encounter for gynecological examination (general) (routine) without abnormal findings (principal); Z00.01 Encounter for general adult medical examination with abnormal findings; Z78.0 Asymptomatic menopausal state; Z85.038 Personal history of other malignant neoplasm of large intestine; Z90.49 Acquired absence of other specified parts of digestive tract
CPT/HCPCS: 36415; 80061; 82306; 82565; 82607; 82746; 84520; 87624; 88142

== ENCOUNTER 2021-07-22 08:57 | Outpatient (REF) | payer OTHER, SELFPAY ==
--- NOTE | ~2021-07-22 | CT_ITS ---
EXAMINATION: CT CHEST WITH CONTRAST CLINICAL INFORMATION: Surveillance for colon cancer COMPARISON: Previous chest CT August 2020 TECHNIQUE: Multidetector volumetric CT imaging of the chest was obtained after the administration of 85 mL of Omnipaque 350 intravenous contrast without immediate adverse reactions. Axial MIP volume rendering provided. Sagittal and coronal reformatted images were obtained. This CT examination was performed using dose optimization techniques as appropriate, variously including the following: *Automated exposure control *Adjustment of mA and/or kV according to patient size (this includes techniques or standardized protocols for targeted exams where dose is matched to indication/reason for exam; i.e. extremities or head) *Use of iterative reconstruction technique DLP: 63 mGy-cm FINDINGS: HSE SPECIALIST: Unremarkable LUNGS: The lungs are clear with no evidence of inflammation or nodules. MEDIASTINUM: The mediastinum is normal. PLEURA: There is no pleural effusion. No pleural mass or thickening. AXILLA: No lymphadenopathy. OSSEOUS STRUCTURES: Unremarkable. CT/CT chest w con IMPRESSION: Unremarkable exam. No evidence of metastatic disease. Fleischner guidelines were followed.
--- NOTE | ~2021-07-22 | CT_ITS ---
EXAMINATION: CT ABDOMEN AND PELVIS WITH CONTRAST CLINICAL INFORMATION: Surveillance for colon cancer COMPARISON: Previous CT scan most recent January 2021 TECHNIQUE: Multidetector volumetric images were obtained from the superior aspect of the liver through the pubic symphysis following administration 85 mL of Omnipaque 350 intravenous contrast. Sagittal and coronal reformatted images were obtained on the technologist's workstation. Oral contrast: Yes This CT examination was performed using dose optimization techniques as appropriate, variously including the following: *Automated exposure control *Adjustment of mA and/or kV according to patient size (this includes techniques or standardized protocols for targeted exams where dose is matched to indication/reason for exam; i.e. extremities or head) *Use of iterative reconstruction technique DLP: 191 mGy-cm FINDINGS: LIVER, GALLBLADDER, AND BILIARY TREE: The liver is normal in size and shape. The liver is slightly low in attenuation suggestive of mild fatty infiltration. No focal hepatic lesion or biliary ductal dilatation is present. The gallbladder is unremarkable with no evidence of radiopaque gallstones, gallbladder wall thickening, or obvious pericholecystic inflammatory changes. PANCREAS: Unremarkable. SPLEEN: Unremarkable. ADRENAL GLANDS: Unremarkable. KIDNEYS AND URETERS: There are bilateral renal peripelvic cysts. The kidneys are normal in size, shape, and attenuation. No hydronephrosis, hydroureter, or calculi seen. No perinephric stranding. BLADDER: Unremarkable. GASTROINTESTINAL TRACT: There are postsurgical changes to the sigmoid colon. There is stool throughout the colon. The small and large bowel are otherwise unremarkable. The appendix is unremarkable. ABDOMINAL WALL: No significant hernia is appreciated. LYMPH NODES: Normal. VASCULAR: Unremarkable. PELVIC VISCERA: Unremarkable. OSSEOUS STRUCTURES: Unremarkable. CT/CT abdomen pelvis w con IMPRESSION: No evidence of metastatic disease. Mild fatty infiltration of liver. Bilateral renal cysts. Fleischner guidelines were followed.
[2021-07-22] MEDS: iohexoL 350 MG/ML 100 ML INFUS..BTL IV (09:23)
== END 2021-07-22 08:58 | disposition home or self-care (01) ==
LOC: HO.CT 08:57
PROVIDERS: Visit Provider Internal Medicine Medical Oncology
DX: Z85.038 Personal history of other malignant neoplasm of large intestine (principal)
CPT/HCPCS: 71260; 74177; Q9967

== ENCOUNTER 2021-08-01 07:44 | Day surgery (SDC) | payer OTHER, SELFPAY ==
[2021-07-25 16:37] VITALS: BMI 20.9
[2021-07-28 10:53] VITALS: BMI 20.5
--- NOTE | 2021-07-30 12:34 | P.CONAN_ITS ---
Documented by User: Caitlyn Guillermo NP 07/30/21 12:37 HPI - Anesthesia Eval Consult details Narrative: 51yo F for Colonoscopy, Poss Polypectomy s/p lap bowel resect 07/2020 [facility] Active Problems Active Problems: All Active Problems (Updated 07/04/21 @ 09:06 by Angella Luna MD) S/P laparoscopic-assisted sigmoidectomy (Acute) Rectal cancer (Acute) Refused influenza vaccine (Acute) History of colon cancer (Acute) Adenocarcinoma of sigmoid colon (Acute) Menopause (Acute) Annual visit for general adult medical examination with abnormal findings ([place]cut e) Past Medical History Medical History (Updated 07/04/21 @ 09:06 by Angella Luna MD) Adenocarcinoma of sigmoid colon Annual visit for general adult medical examination with abnormal findings GERD (gastroesophageal reflux disease) History of colon cancer Irritable bowel syndrome (IBS) Menopause Ovarian cyst Refused influenza vaccine Sigmoid polyp Family History Family History Father No problems noted. Mother No problems noted. Son No problems noted. Daughter No problems noted. Family/Other Breast cancer Family history of problems with anesthesia: No Surgical History Surgical History (Updated 07/30/21 @ 12:36 by Caitlyn Guillermo NP) History of esophagogastroduodenoscopy (EGD) Hx of colonoscopy S/P laparoscopic-assisted sigmoidectomy (~07/2020) History of Problems with Anesthesia: No (Only MAC anesthesia) Social History Social History Housing: House Are you a primary transitions rn care coordinator to a significant other at home: No Do you presently have visiting nurse or other home services: No Alcohol intake: never Patient Tobacco Use Status: Never used Tobacco e-Cigarette/Vaping Use: Never Used Second Hand Smoke Exposure: No Use of substances other than those prescribed or required for medical reasons: No Are you DNR?: No Advance Directives: No Advance Directives Information Provided: Yes Advance Directives on File: No Patient : No service: No Current occupational status: employed Meds Allergies Allergy/AdvReac Type Severity Reaction Status Date / Time No Known Allergies Allergy Verified 07/28/21 10:53 Exam Exam Date and Time: July 30, 2021 1234 Height,Weight and Vital Signs: Height 5 ft Weight 47.627 kg Pertinent Lab Results Pertinent Lab Results: Laboratory Tests 06/10/21 06/10/21 07/04/21 09:10 09:10 09:01 WBC 4.8 Hgb 12.5 Hct 36.9 L Plt Count 240 Sodium 141 Potassium 3.8 Chloride 107 Carbon Dioxide 25 BUN 12 Creatinine 0.68 Narrative Narrative: EKG 07/2020 Vent. Rate : 078 BPM ? ? Atrial Rate : 078 BPM ?? P-R Int : 120 ms? QRS Dur : 078 ms ? ? QT Int : 386 ms ? ? ? P-R-T Axes : 060 073 049 degrees ?? QTc Int : 440 ms ? Normal sinus rhythm Normal ECG When compared with ECG of 21-APR-2012 11:33, No significant change was found Assessment and Plan Assessment Anesthesia Assessment: Chart Reviewed Final Anesthetic Review Family History of Problems with Anesthesia: No History of Problems with Anesthesia: No (Only MAC anesthesia) Documented by User: Tae Rodriguez MD 08/01/21 08:51 [facility] Past Medical History Medical History (Updated 07/04/21 @ 09:06 by Angella Luna MD) Adenocarcinoma of sigmoid colon Annual visit for general adult medical examination with abnormal findings GERD (gastroesophageal reflux disease) History of colon cancer Irritable bowel syndrome (IBS) Menopause Ovarian cyst Refused influenza vaccine Sigmoid polyp Patient : No Family History Family History Father No problems noted. Mother No problems noted. Son No problems noted. Daughter No problems noted. Family/Other Breast cancer Surgical History Surgical History (Updated 07/30/21 @ 12:36 by Caitlyn Guillermo NP) History of esophagogastroduodenoscopy (EGD) Hx of colonoscopy S/P laparoscopic-assisted sigmoidectomy (~07/2020) Social History Social History Housing: House Are you a primary transitions rn care coordinator to a significant other at home: No Do you presently have visiting nurse or other home services: No Alcohol intake: never Patient Tobacco Use Status: Never used Tobacco e-Cigarette/Vaping Use: Never Used Second Hand Smoke Exposure: No Use of substances other than those prescribed or required for medical reasons: No Are you DNR?: No Advance Directives: No Advance Directives Information Provided: Yes Advance Directives on File: No Patient : No service: No Current occupational status: employed Meds Allergies Allergy/AdvReac Type Severity Reaction Status Date / Time No Known Allergies Allergy Verified 07/28/21 10:53 Exam Airway Mallampati Class: I TM Dist: >3cm Neck ROM: Full Loose/Missing/Broken Teeth: No Heart: ok Lungs: ok Assessment and Plan Assessment Anesthesia Assessment: Anesthesia Plan Discussed and Chart Reviewed Final Anesthetic Review NPO: Yes ASA Class: II Final Preanesthetic Review: No Changes in Pt Med Stat, Meds/Allgs Chart Reviewe d, Consent Obtained/Reviewed and Anes Risks/Benef Reviewed Patient Risk: Low Procedure Risk: Low Anesthetic Plan Anesthetic Plan: MAC: and Agree w/ Assess. and Plan Disposition: Standard PACU
[2021-08-01 07:57] VITALS: BP 146/71; PULSE 73; RESP 18; TEMP 36; O2SAT 100
--- NOTE | 2021-08-01 08:23 | P.HPSUR_ITS ---
Pre-Procedural Eval Section A Date of Service: 08/01/21 Section B Chief Complaint: History of colon cancer Details of Present Illness: has hx of colon cancer, underwent sigmoid resection Jul 2020 Relevant Family History (Specify if Yes): No Relevant Social History: None Present Medications: see Short Stay Collaborative assessment Medical History: No relevant PMH Allergies: Allergies Allergy/AdvReac Type Severity Reaction Status Date / Time No Known Allergies Allergy Verified 07/28/21 10:53 Review of Systems Sugical H&P ROS: Negative: Constitution, Cardiovascular, Respiratory, Neurological, Psychiatric, Hem-Onc, Allergic/Immunologic, Gastrointestinal, G enitourinary, Musculoskeletal, Integumentary, Endocrine and Eyes/Ears/Nose/Throat Exam Surgical H&P Exam: Normal: HEENT, Normal: Heart, Normal: Lungs, Normal: Extremities, Normal: Abdomen, Normal: Skin and Normal: Neurological Plan Diagnosis/Plan: Unchanged I have reviewed the history and physical and performed a pertinent physical examination on my patient. No changes have occurred unless specified.
[2021-08-01] MEDS: Lactated Ringers 1,000 ML 100 ML IVCONT (08:47)
--- NOTE | 2021-08-01 09:19 | W.PM.OPN ---
Operative Note Operative Note Date of Service: 08/01/21 Narrative: Preop diagnosis: History of colon cancer in the sigmoid Postop diagnosis: The same, with normal colonoscopy findings Procedure: Colonoscopy Surgeon: Alejandro Fleming MD The patient is a 51-year-old female who had undergone sigmoid resection for colon cancer, T1 N1 last July,. She is here for surveillance colonoscopy. She understands the technique of the procedure as well as the risks, benefits, and alternatives She was brought to the operating room and placed in left lateral decubitus position under monitored anesthesia care. A surgical time-out had been done. A full digital rectal exam was done. There were no palpable anal lesions. The tip of the Olympus colonoscope was gently introduced through the anal orifice advanced with insufflation all the cecum. The cecum was intubated. The cecum was identified by visualization of the ileocecal valve as well as the appendiceal orifice. The cecal mucosa was unremarkable. The scope was gradually withdrawn with careful examination of the entire colonic mucosa being done with scope withdrawal. The patient had adequate bowel prep so it was unlikely that any lesion may have been missed. There were no polyps or any abnormal mucosa seen. The rectum was reached. There were no lesions seen. The anal canal so unremarkable. The scope was then withdrawn completely with desufflation. The patient tolerated The procedure well. There were no complications noted. In view of her personal history of colon cancer, she may need to have a colonoscopy every 5 years for screening.
[2021-08-01 09:25] VITALS: BP 111/65; PULSE 84; RESP 16; TEMP 36.4; O2SAT 100
[2021-08-01 09:40] VITALS: BP 118/72; PULSE 72; RESP 16; TEMP 36.4; O2SAT 100
== END 2021-08-01 09:40 | disposition home or self-care (01) ==
PROVIDERS: PCP Internal Medicine; Visit Provider Surgery
PROC: 0DJD8ZZ Inspection of Lower Intestinal Tract, Via Natural or Artificial Opening Endoscopic (ICD-10-PCS; CPT 45378; principal; 2021-08-01 09:00)
DX: Z12.11 Encounter for screening for malignant neoplasm of colon (principal); K58.1 Irritable bowel syndrome with constipation; K21.9 Gastro-esophageal reflux disease without esophagitis; Z85.038 Personal history of other malignant neoplasm of large intestine; Z92.21 Personal history of antineoplastic chemotherapy; Z90.49 Acquired absence of other specified parts of digestive tract
CPT/HCPCS: 45378

== ENCOUNTER 2021-09-20 10:51 | Outpatient (REF) | payer OTHER, SELFPAY ==
--- NOTE | ~2021-09-20 | MM_ITS ---
EXAMINATION: MM SCREENING DIGITAL BREAST TOMOSYNTHESIS, BILATERAL CLINICAL INFORMATION: Screening. Asymptomatic. The lifetime risk of breast cancer based on the Tyrer-Cuzick Model is 5%. COMPARISON: Mammography: 09/14/2020, 07/22/2019, 07/16/2018 TECHNIQUE: Digital breast tomosynthesis is performed in both the craniocaudal and mediolateral oblique views along with computer-aided detection (CAD). Synthesized 2D images are generated from the tomosynthesis. FINDINGS: The breasts are almost entirely fatty (ACR BI-RADS breast composition Category a). Background stromal and fibroglandular densities are stable. Island fibroglandular tissue at mid 12:00 right breast is similar to prior studies. There is no developing density or interval mass or architectural abnormality. No abnormal calcifications. The axilla and skin contours are unremarkable. MM/MM tomosynthesis screening BI IMPRESSION: No mammographic evidence of malignancy. ASSESSMENT: BI-RADS 2: Benign RECOMMENDATION: Routine annual mammography screening. This patient's information was entered into a reminder system with a target due date for their next mammogram.
== END 2021-09-20 10:52 | disposition home or self-care (01) ==
LOC: HO.MAMMO 10:51
PROVIDERS: PCP Internal Medicine; Visit Provider Internal Medicine
DX: Z12.31 Encounter for screening mammogram for malignant neoplasm of breast (principal)
CPT/HCPCS: 77063; 77067

== ENCOUNTER 2022-01-19 10:31 | Outpatient (REF) | payer OTHER, SELFPAY ==
--- NOTE | ~2022-01-19 | CT_ITS ---
EXAMINATION: CT CHEST WITH CONTRAST CLINICAL INFORMATION: Restaging colon cancer. COMPARISON: Previous chest CT August 2020. July [address] images are unavailable for comparison at this time. TECHNIQUE: Multidetector volumetric CT imaging of the chest was obtained after the administration of 75 mL of Omnipaque 300 intravenous contrast without immediate adverse reactions. Axial MIP volume rendering provided. Sagittal and coronal reformatted images were obtained. This CT examination was performed using dose optimization techniques as appropriate, variously including the following: *Automated exposure control *Adjustment of mA and/or kV according to patient size (this includes techniques or standardized protocols for targeted exams where dose is matched to indication/reason for exam; i.e. extremities or head) *Use of iterative reconstruction technique DLP: 63 mGy-cm. FINDINGS: LUNGS: There is a small, slightly irregularly-shaped, 4 mm left lower lobe nodule, axial image 202 series 7, versus area of atelectasis. This is new from August [address] is unavailable for comparison at this time. There is dependent atelectasis seen at the lung bases. The lungs are otherwise clear. MEDIASTINUM: The mediastinum is normal. PLEURA: There is no pleural effusion. No pleural mass or thickening. AXILLA: No lymphadenopathy. UPPER ABDOMEN: Unremarkable. OSSEOUS STRUCTURES: Unremarkable. CT/CT chest w con IMPRESSION: New 4 mm, slightly irregularly-shaped, left lower lobe nodule versus area of atelectasis. Other areas of dependent atelectasis seen at both lung bases. Short-term chest CT follow-up recommended. Fleischner guidelines were followed.
--- NOTE | ~2022-01-19 | CT_ITS ---
EXAMINATION: CT ABDOMEN AND PELVIS WITH CONTRAST CLINICAL INFORMATION: Colon cancer for restaging. COMPARISON: CT abdomen and pelvis 07/22/2021 . TECHNIQUE: Multidetector volumetric images were obtained from the superior aspect of the liver through the pubic symphysis following administration 75 mL of Omnipaque 300 intravenous contrast. Sagittal and coronal reformatted images were obtained on the technologist's workstation. Oral contrast: No This CT examination was performed using dose optimization techniques as appropriate, variously including the following: *Automated exposure control *Adjustment of mA and/or kV according to patient size (this includes techniques or standardized protocols for targeted exams where dose is matched to indication/reason for exam; i.e. extremities or head) *Use of iterative reconstruction technique DLP: 255 mGy-cm. FINDINGS: LUNG BASES: The visualized lung bases are unremarkable. The heart size is normal. LIVER, GALLBLADDER, AND BILIARY TREE: The liver is normal in size, shape, and slightly decreased attenuation, likely fatty infiltration. No focal hepatic lesion or biliary ductal dilatation is present. The gallbladder is unremarkable with no evidence of radiopaque gallstones, gallbladder wall thickening, or obvious pericholecystic inflammatory changes. PANCREAS: Unremarkable. SPLEEN: Unremarkable. ADRENAL GLANDS: Unremarkable. KIDNEYS AND URETERS: The kidneys are normal in size, shape, and attenuation. No hydronephrosis, hydroureter, or calculi seen. No perinephric stranding. There are bilateral peripelvic cyst. BLADDER: Unremarkable. GASTROINTESTINAL TRACT: Moderate scattered stool, gas and oral contrast is seen throughout the colon without distention. The small bowel loops are normal caliber. Appendix is not visualized. There is no free air or free fluid seen. The stomach is nondistended and appears unremarkable. ABDOMINAL WALL: No significant hernia is appreciated. LYMPH NODES: There are no retroperitoneal lymph nodes or mass visualized. VASCULAR: Unremarkable. PELVIC VISCERA: The uterus is anteverted and appears unremarkable. There is no free fluid or adnexal mass. No abnormal pelvic or inguinal lymph nodes. OSSEOUS STRUCTURES: No lytic or sclerotic process seen. CT/CT abdomen pelvis w con IMPRESSION: No evidence of metastatic disease. The liver and the adrenal glands are normal. No abnormal lymphadenopathy. Moderate constipation. Bilateral peripelvic renal cysts, stable. Fleischner guidelines were followed.
== END 2022-01-19 10:32 | disposition home or self-care (01) ==
LOC: HO.CT 10:31
PROVIDERS: Visit Provider Internal Medicine Medical Oncology
DX: C18.7 Malignant neoplasm of sigmoid colon (principal); R91.1 Solitary pulmonary nodule; Z85.038 Personal history of other malignant neoplasm of large intestine
CPT/HCPCS: 71260; 74177; Q9967

== ENCOUNTER 2022-04-22 12:49 | Day surgery (SDC) | payer OTHER, SELFPAY ==
--- NOTE | 2022-04-21 12:01 | P.CONAN_ITS ---
Documented by User: Caitlyn Guillermo NP 04/21/22 12:02 HPI - Anesthesia Eval Consult details Narrative: 51yo F for Upper Endoscopy PMFSH Active Problems Active Problems: All Active Problems (Updated 03/09/22 @ 12:50 by Eugenia Thayer PA-C) Rectal cancer (Acute) Nausea (Acute) S/P laparoscopic-assisted sigmoidectomy (Acute ~07/2020) Refused influenza vaccine (Acute) History of colon cancer (Acute) Adenocarcinoma of sigmoid colon (Acute) Menopause (Acute) Annual visit for general adult medical examination with abnormal findings (Acute) Past Medical History Medical History Adenocarcinoma of sigmoid colon Annual visit for general adult medical examination with abnormal findings GERD (gastroesophageal reflux disease) History of colon cancer Irritable bowel syndrome (IBS) Menopause Ovarian cyst Refused influenza vaccine Sigmoid polyp Family History Family History Father No problems noted. Mother No problems noted. Son No problems noted. Daughter No problems noted. Family/Other Breast cancer Family history of problems with anesthesia: No Surgical History Surgical History History of esophagogastroduodenoscopy (EGD) Hx of colonoscopy S/P laparoscopic-assisted sigmoidectomy (~07/2020) History of Problems with Anesthesia: No (Only MAC anesthesia) Social History Social History Household Members: Children Housing: House Are you a primary out of school hours care worker to a significant other at home: No Do you presently have visiting nurse or other home services: No Alcohol intake: never Patient Tobacco Use Status: Never used Tobacco e-Cigarette/Vaping Use: Never Used Second Hand Smoke Exposure: No Use of substances other than those prescribed or required for medical reasons: No Are you DNR?: No Advance Directives: No Advance Directives Information Provided: Yes service: No Current occupational status: employed Meds Allergies Allergy/AdvReac Type Severity Reaction Status Date / Time No Known Allergies Allergy Verified 04/16/22 14:36 Home Medications Medication Instructions Recorded Confirmed Last Taken Type No Known Home Meds 03/09/22 04/16/22 Unknown History Exam Exam Date and Time: April 21, 2022 1201 Pertinent Lab Results Pertinent Lab Results: Laboratory Tests 01/16/22 01/16/22 16:15 16:15 WBC 6.8 Hgb 12.4 Hct 36.6 L Plt Count 239 Sodium 139 Potassium 3.9 Chloride 104 Carbon Dioxide 24 BUN 11 Creatinine 0.69 Assessment and Plan Assessment Anesthesia Assessment: Chart Reviewed Final Anesthetic Review Family History of Problems with Anesthesia: No History of Problems with Anesthesia: No (Only MAC anesthesia) Documented by User: Malgorzata Hewitt MD 04/22/22 13:27 [facility] Past Medical History Medical History Adenocarcinoma of sigmoid colon Annual visit for general adult medical examination with abnormal findings GERD (gastroesophageal reflux disease) History of colon cancer Irritable bowel syndrome (IBS) Menopause Ovarian cyst Refused influenza vaccine Sigmoid polyp Functional capacity: independent ambulation Patient : No Family History Family History Father No problems noted. Mother No problems noted. Son No problems noted. Daughter No problems noted. Family/Other Breast cancer Surgical History Surgical History History of esophagogastroduodenoscopy (EGD) Hx of colonoscopy S/P laparoscopic-assisted sigmoidectomy (~07/2020) Social History Social History Household Members: Children Housing: House Are you a primary out of school hours care worker to a significant other at home: No Do you presently have visiting nurse or other home services: No Alcohol intake: never Patient Tobacco Use Status: Never used Tobacco e-Cigarette/Vaping Use: Never Used Second Hand Smoke Exposure: No Use of substances other than those prescribed or required for medical reasons: No Are you DNR?: No Advance Directives: No Advance Directives Information Provided: Yes service: No Current occupational status: employed Meds Allergies Allergy/AdvReac Type Severity Reaction Status Date / Time No Known Allergies Allergy Verified 04/16/22 14:36 Home Medications Medication Instructions Recorded Confirmed Last Taken Type No Known Home Meds 03/09/22 04/16/22 Unknown History Exam Airway Mallampati Class: II TM Dist: >3cm Neck ROM: Full Heart: RRR Lungs: CTA Assessment and Plan Final Anesthetic Review ASA Class: II Final Preanesthetic Review: No Changes in Pt Med Stat, Meds/Allgs Chart Reviewed, Consent Obtained/Reviewed and Anes Risks/Benef Reviewed Patient Risk: Low Procedure Risk: Low Anesthetic Plan Anesthetic Plan: MAC: Disposition: Standard PACU
[2022-04-22 13:00] VITALS: BP 143/74; PULSE 72; RESP 18; TEMP 36.8; O2SAT 98
[2022-04-22] MEDS: Lactated Ringers 1,000 ML 100 ML IVCONT (13:25)
[2022-04-22 13:26] VITALS: BMI 20.7
--- NOTE | 2022-04-22 13:42 | P.HPSUR_ITS ---
Pre-Procedural Eval Section A Date of Service: 04/22/22 Section B Chief Complaint: nausea Relevant Family History (Specify if Yes): No Relevant Social History: None Present Medications: see Short Stay Collaborative assessment Medical History: Significant History (Adenocarcinoma of sigmoid colon Annual visit for general adult medical examination with abnormal findings GERD (gastroesophageal reflux disease) History of colon cancer Irritable bowel syndrome (IBS) Menopause Ovarian cyst Refused influenza vaccine Sigmoid polyp) History of Previous Operations: Relevant previous surgery/procedure and date(s) (History of esophagogastroduodenoscopy (EGD) Hx of colonoscopy S/P laparoscopic- assisted sigmoidectomy (~07/2020)) Allergies: Allergies Allergy/AdvReac Type Severity Reaction Status Date / Time No Known Allergies Allergy Verified 04/16/22 14:36 Review of Systems Sugical H&P ROS: Negative: Constitution, Cardiovascular, Respiratory, Neurological, Psychiatric, Hem-Onc, Allergic/Immunologic, Gastrointestinal, Genitourinary, Musculoskeletal, Integumentary, Endocrine and Eyes/Ears/Nose/Throat Exam Surgical H&P Exam: Normal: HEENT, Normal: Heart, Normal: Lungs, Normal: Extremities, Normal: Abdomen, Normal: Skin and Normal: Neurological Plan Diagnosis/Plan: Unchanged I have reviewed the history and physical and performed a pertinent physical examination on my patient. No changes have occurred unless specified.
--- NOTE | 2022-04-22 13:43 | W.PM.OPN ---
Operative Note Operative Note Date of Service: 04/22/22 Narrative: Procedure Description: EGD Indication: nausea Anesthesia: MAC FLEXIBLE TRANSORAL UPPER GASTROINTESTINAL ENDOSCOPY UPPER ENDOSCOPY Consent: Indications for the procedure and potential complications of bleeding, perforation, reaction to medications and missed diagnosis were discussed with the patient and informed consent was obtained. Instrument: Olympus GIF H 190 J mid size upper endoscope Monitoring: Vital signs and clinical assessment, continuous EKG monitoring, Pulse oximetry, Carbon Dioxide monitoring and blood pressure monitoring were done throughout the procedure. Procedure: The patient was placed in the left lateral decubitis position and pre-procedure medications were administered and a bite block was placed. The endoscope was inserted into the mouth and advanced under direct vision to the third part of duodenum. A careful inspection was made as the upper endoscope was withdrawn including a retroflexed examination of the proximal stomach; Findings and interventions are described below. Findings: Larynx:normal Esophagus: GE junction at 38 cm, diaphragm hiatus at 38 cm, mild esophagitis, non obstructive schatzki ring noted, random bx taken from esophagus and GEJ Stomach: Patchy gastric erythema. Biopsies were obtained. Grade 2 flap valve on retroflexed examination of the cardia. There appeared to be reduced gastric motility. Pyloric outlet was tight and dilated using balloon to 20 mm with heme noted around the edges of the outlet. Duodenum: Normal bulb and descending duodenum, bx taken Intervention: Biopsies as noted above, pyloric dilation Impression/Findings: pyloric stenosis possible gastroparesis esophagitis schatzki ring PLAN: trial of PPI if h pylori pos then treat consider GES if ongoing sx to r/o gastroparesis
[2022-04-22 14:29] VITALS: BP 115/70; PULSE 102; RESP 16; TEMP 36.2; O2SAT 99
[2022-04-22 14:44] VITALS: BP 128/80; PULSE 80; RESP 16; O2SAT 100
[2022-04-22 14:59] VITALS: BP 126/79; PULSE 73; RESP 16; TEMP 36.2; O2SAT 100
== END 2022-04-22 15:22 | disposition home or self-care (01) ==
PROVIDERS: Visit Provider Internal Medicine Gastroenterology
PROC: 0DJ08ZZ Inspection of Upper Intestinal Tract, Via Natural or Artificial Opening Endoscopic (ICD-10-PCS; CPT 43235; principal; 2022-04-22 14:20)
DX: R11.0 Nausea (principal); Z85.038 Personal history of other malignant neoplasm of large intestine; Z92.21 Personal history of antineoplastic chemotherapy; K22.2 Esophageal obstruction; K31.1 Adult hypertrophic pyloric stenosis; K21.9 Gastro-esophageal reflux disease without esophagitis; K20.80 Other esophagitis without bleeding; K29.50 Unspecified chronic gastritis without bleeding; B96.81 Helicobacter pylori [H. pylori] as the cause of diseases classified elsewhere; K44.9 Diaphragmatic hernia without obstruction or gangrene; K58.1 Irritable bowel syndrome with constipation; N83.209 Unspecified ovarian cyst, unspecified side; Z78.0 Asymptomatic menopausal state; Z90.49 Acquired absence of other specified parts of digestive tract; Z79.899 Other long term (current) drug therapy
CPT/HCPCS: 43245; 43239; 88305; 88342; C1726; J2250

== ENCOUNTER 2022-05-04 09:47 | Outpatient (REF) | payer OTHER, SELFPAY ==
--- NOTE | ~2022-05-04 | CT_ITS ---
EXAMINATION: CT CHEST WITH CONTRAST CLINICAL INFORMATION: Follow-up pulmonary nodules. History of colon cancer. COMPARISON: Previous chest CT January 2022 TECHNIQUE: Multidetector volumetric CT imaging of the chest was obtained after the administration of 65 mL of Omnipaque 350 intravenous contrast without immediate adverse reactions. Axial MIP volume rendering provided. Sagittal and coronal reformatted images were obtained. This CT examination was performed using dose optimization techniques as appropriate, variously including the following: *Automated exposure control *Adjustment of mA and/or kV according to patient size (this includes techniques or standardized protocols for targeted exams where dose is matched to indication/reason for exam; i.e. extremities or head) *Use of iterative reconstruction technique DLP: 64 mGy-cm FINDINGS: LUNGS: The small irregularly-shaped nodule in the left lower lobe measuring 4 mm axial image 99 series 7 is stable. The lungs are otherwise clear. No other pulmonary nodule is seen. MEDIASTINUM: The mediastinum is normal. CORONARY ARTERY CALCIFICATION: None visualized on this study. PLEURA: There is no pleural effusion. No pleural mass or thickening. AXILLA: No lymphadenopathy. UPPER ABDOMEN: Bilateral peripelvic cysts. OSSEOUS STRUCTURES: Unremarkable. CT/CT chest w IV con IMPRESSION: Stable 4 mm left lower lobe nodule from January 2022 exam. Fleischner guidelines were followed.
[2022-05-04] MEDS: iohexoL 350 MG/ML 100 ML INFUS..BTL IV (10:29)
== END 2022-05-04 09:48 | disposition home or self-care (01) ==
LOC: HO.CT 09:47
PROVIDERS: Visit Provider Internal Medicine Medical Oncology
DX: R91.1 Solitary pulmonary nodule (principal)
CPT/HCPCS: 71260; Q9967

== ENCOUNTER 2022-06-23 13:02 | Outpatient (REF) | payer OTHER, SELFPAY ==
[2022-06-24 12:46] LABS: H Pylori Breath Test Negative (Negative)
== END 2022-06-23 13:03 | disposition home or self-care (01) ==
LOC: HO.LNP 13:02
PROVIDERS: Visit Provider Internal Medicine Gastroenterology
DX: R11.0 Nausea (principal); Z11.0 Encounter for screening for intestinal infectious diseases
CPT/HCPCS: 83013

== ENCOUNTER 2022-07-16 09:01 | Outpatient (REF) | payer OTHER, SELFPAY ==
[2022-07-16 12:19] LABS: Cholesterol 254 mg/dL; HDL Cholesterol 93 mg/dL; LDL Cholesterol Calculated 146 mg/dl; Triglycerides 78 mg/dL; Vitamin D 25-OH Total 27.5 ng/mL (>30)
[2022-07-21 07:39] LABS: HPV mRNA E6/E7 rflx Not Detected (Not Detected)
== END 2022-07-16 09:02 | disposition home or self-care (01) ==
LOC: HO.HMGCLDS 09:01
PROVIDERS: PCP Internal Medicine; Visit Provider Internal Medicine
DX: Z00.01 Encounter for general adult medical examination with abnormal findings (principal); Z12.4 Encounter for screening for malignant neoplasm of cervix; Z11.51 Encounter for screening for human papillomavirus (HPV); Z78.0 Asymptomatic menopausal state
CPT/HCPCS: 36415; 80061; 82306; 87624; 88142

== ENCOUNTER 2022-09-26 10:28 | Outpatient (REF) | payer OTHER, SELFPAY ==
--- NOTE | ~2022-09-26 | MM_ITS ---
EXAMINATION: MM SCREENING DIGITAL BREAST TOMOSYNTHESIS, BILATERAL CLINICAL INFORMATION: Screening. Asymptomatic. The lifetime risk of breast cancer based on the Tyrer-Cuzick Model is 4%. COMPARISON: Mammography: 09/20/2021, 09/14/2020, 07/22/2019, 07/16/2018, 07/10/2017 TECHNIQUE: Digital breast tomosynthesis is performed in both the craniocaudal and mediolateral oblique views along with computer-aided detection (CAD). Synthesized 2D images are generated from the tomosynthesis. FINDINGS: There are scattered areas of fibroglandular density (ACR BI-RADS breast composition Category b). Parenchymal pattern borders on predominantly fatty. There is chronic smooth oval parenchymal asymmetry central 12:00 right breast. No developing density or architectural abnormality. No abnormal calcifications. The axilla and skin contours are unremarkable. MM/MM tomosynthesis screening BI IMPRESSION: No significant changes from prior exams. ASSESSMENT: BI-RADS 2: Benign RECOMMENDATION: Routine annual mammography screening. This patient's information was entered into a reminder system with a target due date for their next mammogram.
== END 2022-09-26 10:29 | disposition home or self-care (01) ==
LOC: HO.MAMMO 10:28
PROVIDERS: PCP Internal Medicine; Visit Provider Internal Medicine
DX: Z12.31 Encounter for screening mammogram for malignant neoplasm of breast (principal)
CPT/HCPCS: 77063; 77067

== ENCOUNTER 2022-10-19 09:20 | Outpatient (REF) | payer OTHER, SELFPAY ==
--- NOTE | ~2022-10-19 | CT_ITS ---
EXAMINATION: CT CHEST, ABDOMEN PELVIS WITH IV CONTRAST CLINICAL INFORMATION: Follow up pulmonary nodules and colon cancer. COMPARISON: CT chest 05/04/[address] abdomen pelvis 01/19/2022. TECHNIQUE: 5 mm thin axial and reformatted 3 mm thin sagittal coronal images of chest, abdomen and pelvis were obtained following IV 85 mL Omnipaque 350 and oral contrast. This CT examination was performed using dose optimization technique as appropriate, variously including the following: Automated exposure control Adjustment of MA and/or KV according to patient size(this includes techniques or standardized protocols for targeted exams where dose is matched to indication/reason for exam; extremities or head. Use of iterative reconstruction techniques. DLP 264. FINDINGS: CHEST: Lungs: The lungs are well expanded and clear acute pneumonic process. There is a left lower lobe subpleural less than 4 mm nodule, stable. No additional nodules seen. No acute consolidation. Mediastinum: The thyroid lobes are symmetrical and normal. The central trachea and bronchi are widely patent. Heart size and the great vessels are normal caliber. There is no pericardial effusion. No coronary artery calcifications. Pleura: There is no pleural thickening, effusion or calcification. Axilla: Unremarkable. Osseous Structures: Unremarkable. ABDOMEN AND PELVIS: Liver, Gallbladder and Ducts: The liver is normal size, contour and density. No focal lesion or intrahepatic ductal dilatation seen. The gallbladder is nondistended without radiopaque calculi. Spleen: Unremarkable. Pancreas: Unremarkable except for a 2 mm pancreatic duct visualized distally, nonspecific. Adrenal Glands: Unremarkable. Kidneys and Ureters: Both kidney nephrograms are symmetrical, normal size and cortical thickness. No radiopaque renal calculi seen. There are bilateral peripelvic cysts. No perinephric stranding seen. Bladder: Distended but unremarkable.. GI Tract: There is a large amount of stool in the colon without significant distention. The ileocecal junction and the small bowel loops are normal caliber. There are postsurgical changes in the sigmoid colon is widely patent anastomosis. No inflammatory processes or free fluid seen. Abdominal Wall: Unremarkable. Lymphovascular STRUCTURES: Abdominal aorta is normal caliber. No abnormal retroperitoneal or intraperitoneal lymph nodes seen. Pelvis: The uterus is anteverted and unremarkable. There is no adnexal mass. No abnormal inguinal lymph nodes or hernia. Osseous Structures: No aggressive lytic or sclerotic process seen. CT/CT abdomen pelvis w IV con IMPRESSION: Stable 4 mm nodule left lung base. No new nodules seen. Postsurgical anastomosis in the sigmoid colon is widely patent. No pelvic mass or abnormal lymphadenopathy. Liver and adrenal glands unremarkable. [id number] constipation.
[2022-10-19] MEDS: iohexoL 350 MG/ML 100 ML INFUS..BTL IV (10:04)
== END 2022-10-19 09:21 | disposition home or self-care (01) ==
LOC: HO.CT 09:20
PROVIDERS: Visit Provider Internal Medicine Medical Oncology
DX: C18.7 Malignant neoplasm of sigmoid colon (principal); R91.8 Other nonspecific abnormal finding of lung field; C20 Malignant neoplasm of rectum
CPT/HCPCS: 71260; 74177; Q9967

== ENCOUNTER 2023-04-23 07:47 | Outpatient (REF) | payer OTHER, SELFPAY ==
--- NOTE | ~2023-04-23 | CT_ITS ---
EXAMINATION: CT CHEST, ABDOMEN AND PELVIS WITH CONTRAST CLINICAL INFORMATION: Restaging colon cancer. COMPARISON: Prior CT examinations, most recently 10/19/2022. TECHNIQUE: Multidetector volumetric imaging was performed from the thoracic inlet through the pubic symphysis following administration of 85 mL of Omnipaque 350 intravenous contrast. Sagittal and coronal reformatted images were obtained on the technologist workstation. This CT examination was performed using dose optimization techniques as appropriate, variously including the following: *Automated exposure control. *Adjustment of mA and/or kV according to patient size (this includes techniques or standardized protocols for targeted exams where dose is matched to indication/reason for exam, i.e., extremities or head). *Use of iterative reconstruction technique. DLP: 281 mGy-cm. FINDINGS: CHEST: LUNGS: At the posterolateral left base (7:248), a 3 mm noncalcified subpleural nodule is redemonstrated. No new nodule, mass, infiltrate or groundglass opacity is seen. There is mild dependent hypoaeration. There is no generalized increase in peripheral interlobular septal markings. No small airway thickening is seen. The central airways appear patent. MEDIASTINUM: The mediastinum is normal. Central vascular structures are unremarkable. No hilar or mediastinal lymphadenopathy. PERICARDIUM/PLEURA: There is no significant effusion. No pleural mass or thickening. CHEST WALL/AXILLA: Unremarkable. ABDOMEN/PELVIS: LIVER, GALLBLADDER, BILIARY TREE: The liver is normal in size, shape, and generally diminished in attenuation. No focal hepatic lesion or biliary ductal dilatation is present. The gallbladder is unremarkable with no evidence of radiopaque gallstones, gallbladder wall thickening, or pericholecystic inflammatory changes. PANCREAS: Unremarkable. SPLEEN: Unremarkable. ADRENAL GLANDS: Unremarkable. KIDNEYS AND URETERS: The kidneys are normal in size, shape, and attenuation. No hydronephrosis or hydroureter or calculi seen. Multiple bilateral parapelvic cysts are redemonstrated, for which no imaging follow-up is recommended. No perinephric stranding. BLADDER: Unremarkable. GASTROINTESTINAL TRACT: There is a patent rectosigmoid anastomotic staple line. There is a moderately large stool burden, suggesting possible constipation. No alicia bowel obstruction, free intraperitoneal air or abscess is seen. There is no focal bowel wall thickening. The vermiform appendix is normal. ABDOMINAL WALL: No significant hernia is demonstrated. LYMPH NODES: Normal. VASCULAR: Unremarkable. PELVIC VISCERA: The uterus and adnexa are unremarkable. OSSEOUS STRUCTURES: Unremarkable. CT/CT abdomen pelvis w IV con IMPRESSION: 1. A 3 mm left lower lobe subpleural nodule is stable from prior examinations. This is of doubtful clinical significance. Recommend continued attention on imaging follow-up. 2. No new nodule, mass, infiltrate or groundglass opacity is seen. 3. There is no thoracic lymphadenopathy or pleural effusion. 4. No abdominopelvic mass, free fluid or lymphadenopathy is seen. 5. There is a patent rectosigmoid anastomotic staple line. Findings suggest possible constipation, without alicia bowel obstruction noted. 6. There is hepatic steatosis. 7. No aggressive osseous lesion is seen.
[2023-04-23] MEDS: iohexoL 350 MG/ML 100 ML INFUS..BTL IV (08:12)
== END 2023-04-23 07:48 | disposition home or self-care (01) ==
LOC: HO.CT 07:47
PROVIDERS: PCP Internal Medicine; Visit Provider Internal Medicine Medical Oncology
DX: C18.7 Malignant neoplasm of sigmoid colon (principal); Z85.038 Personal history of other malignant neoplasm of large intestine
CPT/HCPCS: 71260; 74177; Q9967

== ENCOUNTER 2023-07-28 08:11 | Outpatient (AMB) | payer OTHER, SELFPAY ==
[2023-07-28 08:14] VITALS: BP 138/82; PULSE 67; O2SAT 100; BMI 21.2
--- NOTE | 2023-07-28 08:14 | A.OFFPC_ITS ---
Vital Signs 07/28/23 08:14 Height 5 ft Weight 108 lb 6 oz BMI 21.2 BP 138/82 Blood Pressure Location Lt brachial Position Sitting Pulse 67 Pulse Source Pulse Oximeter Pulse Oximetry (%) 100 Oxygen Delivery Method Room Air Intake Visit Reasons: Annual PE Intake Note: Pt is here for her Annual PE Is last menstrual period known: No Allergies No Known Allergies Allergy (Verified 07/28/23 08:21) Medication List - Last Reconciled 07/28/23 by Angella Luna MD No Known Home Meds Tobacco use date assessed: 07/28/23 Dental Screening Dental Screen Date: 07/28/23 Did you have a dental visit in the last 12 months?: Yes Did you have a dental problem in the last 6 months where you did not have access to dental care?: No Was dental information given to patient?: Patient has dentist HPI Annual PE HPI Details 53-year-old Lady here today for physical exam. She has history of colon cancer status post a prescribed assisted sigmoidectomy in 2019, currently followed by Dr. Tapia, with last CEA check was negative. She is up-to-date with her screening mammogram, last Pap smear was done a year ago but was unsatisfactory due to scant cellularity, negative for HPV. She has been feeling well, with no complaints at present time. She does not want to get any vaccinations. [facility] Medical History (Updated 07/28/23 @ 09:14 by Angella Luna MD) History of vitamin D deficiency Hyperlipidemia LDL goal <100 Refused influenza vaccine History of colon cancer Adenocarcinoma of sigmoid colon Menopause Annual visit for general adult medical examination with abnormal findings Ovarian cyst Sigmoid polyp GERD (gastroesophageal reflux disease) Irritable bowel syndrome (IBS) Surgical History (Updated 07/28/23 @ 09:14 by Angella Luna MD) S/P laparoscopic-assisted sigmoidectomy (~07/2020) History of esophagogastroduodenoscopy (EGD) Hx of colonoscopy Family History Father No problems noted. Mother No problems noted. Son No problems noted. Daughter No problems noted. Family/Other Breast cancer Social History Household Members: Children Housing: House Are you a primary medicare compliance auditor to a significant other at home: No Do you presently have visiting nurse or other home services: No Alcohol intake: never Comment: sleeping Patient Tobacco Use Status: Never used Tobacco e-Cigarette/Vaping Use: Never Used Second Hand Smoke Exposure: No service: No Current occupational status: employed Cognitive needs: No Hearing needs: No Vision needs: No Questionnaire PHQ-9 Over the last 2 weeks, how often have you been bothered by any of the following problems? 1. Little interest or pleasure in doing things: not at all 2. Feeling down, depressed, or hopeless: not at all 3. Trouble falling or staying asleep, or sleeping too much: not at all 4. Feeling tired or having little energy: not at all 5. Poor appetite or overeating: not at all 6. Feeling bad about yourself - or that you are a failure or have let yourself or your family down: not at all 7. Trouble concentrating on things, such as reading the newspaper or watching television: not at all 8. Moving or speaking so slowly that other people could have noticed. Or the opposite - being so fidgety or restless that you have been moving around a lot more than usual: not at all 9. Thoughts that you would be better off or of hurting yourself in some way: not at all Total score: 0 Depression Screening Interpretation: Negative Depression Screening Done: Yes 58956 - PHQ-9 Billing: Yes Source: Developed by Drs. Tino Barkley, Sandi Sparks, Jeronimo Gamble and colleagues, with an educational zen from [employer]. Thrive Questionnaire Date Thrive assessed: 07/28/23 I am a: Patient What is your living situation today?: I have a steady place to live Within the past 12 months, did the food you bought not last and you didn't have the money to get more?: Never true Within the past 12 months, did you worry whether your food would run out before you got money to buy more?: Never true Do you have trouble paying for medicines?: No Do you have trouble getting transportation to medical appointments?: No Do you have trouble paying your heating and electricity bill?: No Do you have trouble taking care of your child, family member or friend?: No Do you have trouble with day-to-day activities such as bathing, preparing meals, shopping, managing finances, etc.?: No Are you currently unemployed and looking for a job?: No Are you interested in more education?: Yes AUDIT C Alcohol Use Questionnaire (AUDIT-C) 1. How often do you have a drink containing alcohol?: Monthly or less 2. How many drinks containing alcohol do you have on a typical day when you are drinking?: 1 or 2 3. How often do you have six or more drinks on one occasion?: Never Total Score: 1 ABHAY-7 AMB Questionnaire ABHAY-7 Date ABHAY - 7 assessed: 07/28/23 Feeling nervous, anxious, or on edge: 0 = Not at all Not being able to stop or control worryin = Not at all Worrying too much about different things: 0 = Not at all Trouble relaxin = Not at all Being so restless that it is hard to sit still: 0 = Not at all Becoming easily annoyed or irritable: 0 = Not at all Feeling afraid as if something awful might happen: 0 = Not at all Total ABHAY-7 score (0-4 normal; 5-9 mild; 10-14 moderate; 15-21 severe): 0 Source: Developed by Drs. Tino Barkley, Sandi Sparks, Jeronimo Gamble and colleagues, with an educational zen from [employer]. ABHAY-7 Assessment Billing ABHAY-7 Assessment Tool: ABHAY-7 Assessment 60583 Review of Systems Const Denies chills and Denies fever(s) Eyes Details: Currently sees eye doctor in [place], was told that she has glaucoma status post laser surgery, will request copy of consult room ENT Reports no additional complaints Card Denies chest pain, Denies rapid heart rate, Denies irregular heart rhythm, Denies dyspnea and Denies dyspnea on exertion Resp Denies cough, Denies dyspnea and Denies dyspnea on exertion GI Denies abdominal pain, Denies melena, Denies bloating, Denies hematochezia, Denies change in bowel habits, Denies change in stool character and Denies heartburn Denies hematuria, Denies difficulty voiding, Denies hot flashes, Denies nipple discharge, Denies dysuria, Denies urinary incontinence and Denies vaginal discharge Musc Denies back pain and Denies limited range of motion Skin/Breast Denies breast pain, Denies breast mass and Denies nipple discharge Neuro Reports no additional complaints, Denies focal weakness and Denies convulsions Psych Denies depression and Denies mood swings Endo Reports no additional complaints Baltazar/Lymph Denies easy bleeding and Denies easy bruising Aller/Immun Reports no additional complaints Physical exam (Primary Care) BMI result Body Mass Index 21.2 Tobacco/Smoking Status: Tobacco use Status Tobacco use date assessed 07/16/22 07/16/22 08:06 Patient Tobacco Use Status Never used Tobacco 07/16/22 08:06 e-Cigarette/Vaping Use Never Used 07/16/22 08:06 Depression Screening Interpretation: Negative Thrive Assessment: Date of Thrive Assessment Date Thrive assessed 07/16/22 07/16/22 08:19 Const General: cooperative, comfortable and no acute distress Orientation/consciousness: patient oriented x3 Limitations: no limitations HENMT Ears: hearing grossly normal bilaterally, external ears normal, TM's normal bilaterally and EAC's normal General nose exam: Normal external nose present and No nasal discharge present Mouth: Normal oral and palatal mucosa present and moist mucous membranes Throat: Yes posterior oropharynx normal Eyes General: appearance normal, both eyes and all related structures Conjunctivae: conjunctivae normal Pupils: Equal, round and reactive pupils present EOM: EOMs intact bilaterally Neck Neck: Yes full ROM, Yes no lymphadenopathy and Yes supple Thyroid: Thyroid normal Chest Breast/axilla palpation: normal palpation of the breasts Resp Effort & Inspection: normal respiratory effort and able to speak in complete sentences Auscultation: clear to auscultation bilaterally Cardio Rate: regular rate Rhythm: regular rhythm Heart sounds: S1 normal heart sound present and S2 normal heart sound present GI Inspection: Yes normal to inspection Palpation (GI): Soft to palpation, Firmness to palpation present (GI), nontender and no masses Auscultation: normal bowel sounds General: Yes bladder normal to palpation and Yes no CVA tenderness External Female Exam: normal external appearance and normal appearance of the urethra Speculum Exam - Vagina: normal appearance of the vagina, normal palpation and other (dry vaginal mucosa) Speculum Exam - Cervix: normal appearance of the cervix, normal palpation, Cervical os open and Cervical mass present (pedunculated cervical polyp on inferior aspect , nontender , no bleeding) Bimanual exam- vagina & uterus: normal bimanual exam, normal palpation, bladder normal to palpation, consistency normal and normal palpation OB/external & speculum: Cervical os open Back/Spine/Pelvis Back: no CVA tenderness Cervical Spine: cervical ROM normal Thoracic/Lumbar Spine: thoracic and lumbar spine normal to inspection Skin General skin exam: no rashes or lesions noted Neuro General: patient oriented x3, gait normal, tone normal, moves all extremities, Normal light touch and pain sensation and no focal motor deficits Cranial nerves: Yes Equal, round and reactive pupils present Cognition (Neuro): normal cognition Gait exam (Neuro): Normal gait present Motor exam (neuro): 5/5 motor strength present throughout Extrem General: Yes full ROM, Yes no joint enlargement, Yes no pedal edema, Yes no calf tenderness and Yes normal gait Psych Appearance: grossly normal Mental Status: mental status grossly normal Speech and movement: Normal speech and movement present Affect: normal affect Attitude: cooperative Thought process: Normal thought process present Thought content: Normal thought content present Results Reviewed Results Reviewed: Laboratory Tests 07/12/23 10:09 WBC 5.3 Hgb 13.0 Hct 39.5 MCV 95.2 MCH 31.3 RDW 13.1 Plt Count 237 SPEC : [id number] JUNI: 07/12/23 STATUS: COMP REQ : [id number] RECD: 07/12/[address]: Myra Tapia MD COMP: 07/12/23 ENTERED: 07/12/[address]: Angella Luna MD ORDERED: CMP, CEA/R Test Result Flag Reference Site Sodium 140 135-145 mmol/L Potassium 4.1 3.3-5.1 mmol/L CL 106 96-108 mmol/L CO2 25 22-29 mmol/L Gap 13 12-20 BUN 14 9-16 mg/dL Creat 0.69 0.5-1.4 mg/dL Estimated CrCl 66.9 Provided height and weight: 152.4 cm, 46.9 kg. eGFR (calculated from the MDRD study equation) and eCrCl (calculated from the Cockcroft-Gault equation) are based on different parameters and may not yield comparable results. If eCrCl result is absurd, please check patient's height/weight. EGFR > 60 NOTE: For -Cypriot individuals, multiply the result by 1.210. Chronic Kidney Disease: Estimated GFR < 60 mL/min/1.73m2 Severe Kidney Disease: Estimated GFR < 15 mL/min/1.73m2 Glucose, Random 106 60-115 mg/dL CA 9.8 8.4-10.2 mg/dL Total Bili 0.7 0.0-1.0 mg/dL AST (GOT) 18 5-31 U/L ALT (GPT) 9 0-31 U/L Protein, Total 7.5 6.5-8.0 g/dL Alb 4.7 3.5-5.0 g/dL Alk Phos 64 39-117 U/L CEA < 1.73 ng/mL CEA Reference Range: 93.4% Non-Smokers = 0.0-3.0 ng/mL 95.6% Smokers = 0.0-5.0 ng/mL CEA Methodology: [employer] Alinity i Chemiluminescent Microparticle Immunoassay (CMIA) CEA testing can have significant value in monitoring of patients with diagnosed malignancies in whom changing concentrations of CEA are observed. Values obtained with different assay methods cannot be used interchangeably. Assessment and Plan Assessment & Plan (1) Annual visit for general adult medical examination with abnormal findings: Code(s): Z00.01 - Encounter for general adult medical examination with abnormal findings Plan: Reviewed recent labs ordered by her oncologist, added an order to check lipids and vitamin-D level.. Recommended dental visit every 6 months and request a copy of her last consult report from her eye doctor who she sees in [place], patient states she is has been diagnosed to have elevated pressure in both eyes and has had laser surgery. Take adequate calcium in diet and vitamin-D 3 at 2000 IU per cap once a day, in addition to weight-bearing exercises to help maintain good muscle tone and weight control. Instructed to do self-breast exam, and into to get yearly mammogram, currently up-to-date. Patient declines getting any vaccines. She is followed by Dr. Guy with regards to her history of colon cancer (2) Hyperlipidemia LDL goal <100: Code(s): E78.5 - Hyperlipidemia, unspecified Plan: Fasting lipids ordered (3) Refused influenza vaccine: Code(s): Z28.21 - Immunization not carried out because of patient refusal (4) History of colon cancer: Code(s): Z85.038 - Personal history of other malignant neoplasm of large intestine Plan: Had surveillance colonoscopy 08/01/[address] guy which was completely normal due again for repeat next year. Orders: Orders Pap Smear Today Z12.4 - Encounter for screening for malignant neoplasm of cervix Lipid Panel Today E78.5 - Hyperlipidemia, unspecified, Z00.01 - Encounter for general adult medical examination with abnormal findings, Z78.0 - Asymptomatic menopausal state, Z86.39 - Personal history of other endocrine, nutritional and metabolic disease Vitamin D 25-OH Total Today E78.5 - Hyperlipidemia, unspecified, Z00.01 - Encounter for general adult medical examination with abnormal findings, Z78.0 - Asymptomatic menopausal state, Z86.39 - Personal history of other endocrine, nutritional and metabolic disease Coding Level of Care Code Est Pt Prev Care 40-64y(09239) Diagnoses Annual visit for general adult medical examination with abnormal findings Z00.01 Hyperlipidemia LDL goal <100 E78.5 Refused influenza vaccine Z28.21 History of colon cancer Z85.038 Additional Codes ABHAY-7 Assessment Billing - ABHAY-7 Assessment Tool: ABHAY-7 Assessment 70490 ([id number])
== END 2023-07-28 09:17 | disposition home or self-care (01) ==
LOC: HO.HMGC 08:11
PROVIDERS: PCP Internal Medicine; Visit Provider Internal Medicine
DX: Z00.00 Encounter for general adult medical examination without abnormal findings (principal); E78.5 Hyperlipidemia, unspecified; Z28.21 Immunization not carried out because of patient refusal; Z85.038 Personal history of other malignant neoplasm of large intestine
CPT/HCPCS: 99396

== ENCOUNTER 2023-07-28 09:20 | Outpatient (REF) | payer OTHER, SELFPAY ==
[2023-07-28 11:51] LABS: Cholesterol 213 mg/dL (<200); HDL Cholesterol 93 mg/dL (>40); LDL Cholesterol Calculated 112 mg/dL (<100); Triglycerides 42 mg/dL (<150)
[2023-07-28 12:18] LABS: Vitamin D 25-OH Total 36.6 ng/mL (>30)
== END 2023-07-28 09:21 | disposition home or self-care (01) ==
LOC: HO.HMGCLDS 09:20
PROVIDERS: PCP Internal Medicine; Visit Provider Internal Medicine
DX: Z00.01 Encounter for general adult medical examination with abnormal findings (principal); E78.5 Hyperlipidemia, unspecified; Z78.0 Asymptomatic menopausal state; Z86.39 Personal history of other endocrine, nutritional and metabolic disease
CPT/HCPCS: 36415; 80061; 82306

== ENCOUNTER 2023-07-28 10:53 | Outpatient (REF) | payer OTHER, SELFPAY ==
[2023-07-31 06:12] LABS: HPV mRNA E6/E7 rflx Not Detected (Not Detected)
== END 2023-07-28 10:54 | disposition home or self-care (01) ==
LOC: HO.LAB 10:53
PROVIDERS: Visit Provider Internal Medicine
DX: Z12.4 Encounter for screening for malignant neoplasm of cervix (principal); Z11.51 Encounter for screening for human papillomavirus (HPV)
CPT/HCPCS: 87624; 88142

== ENCOUNTER 2023-10-02 10:13 | Outpatient (REF) | payer OTHER, SELFPAY | END 2023-10-02 10:14 | disposition home or self-care (01) | LOC: HO.MAMMO 10:13 | PROVIDERS: PCP Internal Medicine; Visit Provider Internal Medicine | DX: Z12.31 Encounter for screening mammogram for malignant neoplasm of breast (principal) | CPT/HCPCS: 77063; 77067 ==

== ENCOUNTER → 2023-10-02 10:30 | Outpatient (BNV) | payer OTHER, SELFPAY | PROVIDERS: PCP Internal Medicine; Visit Provider Radiology Diagnostic Radiology | DX: Z12.31 Encounter for screening mammogram for malignant neoplasm of breast (principal) | CPT/HCPCS: 77063; 77067 ==

== ENCOUNTER 2023-10-25 07:53 | Outpatient (REF) | payer OTHER, SELFPAY ==
--- NOTE | ~2023-10-25 | CT_ITS ---
STUDY: IV contrast-enhanced CT of the chest, abdomen and pelvis INDICATION: Follow-up colon cancer and pulmonary nodules COMPARISON: Multiple previous studies, most recent, 04/23/2023 TECHNIQUE: Continuous helical imaging obtained through the chest, abdomen and pelvis following injection of 85 mL Omnipaque 350 IV contrast without adverse effect. Oral contrast was also administered. Reconstructed images performed in the coronal and sagittal planes. Maximum intensity projection images of the chest also performed. This CT examination was performed using dose optimization techniques as appropriate, variously including the following: *Automated exposure control *Adjustment of mA and/or kV according to patient size (this includes techniques or standardized protocols for targeted exams where dose is matched to indication/reason for exam; i.e. extremities or head) *Use of iterative reconstruction technique TOTAL EXAM DLP: 76 and 230 mGy-cm, chest and abdomen/pelvis respectively FINDINGS: BACKEND DEVELOPER: Clear lungs. Nonobstructive bowel pattern. LUNGS: Trachea and bronchi are patent. Evaluation of the lung parenchyma limited due to motion. Mild atelectasis. NODULES: LLL: Stable 3 mm subpleural nodule, 7:216 PLEURA: No thickening, effusions or pneumothoraces. MEDIASTINUM/LYMPH NODES: No pathologic mediastinal or hilar lymphadenopathy. Nonspecific axillary lymph nodes. THYROID GLAND: Unremarkable to the extent seen. HEART AND GREAT VESSELS: Heart size within normal limits. No pericardial effusion is seen. Degree of coronary calcifications: Minimal. Nonaneurysmal aorta. Pulmonary arteries are not dilated. HEPATOBILIARY: Liver is normal in size and shape. Mild hypoattenuation to liver parenchyma with hypodensity adjacent to the gallbladder fossa, likely focal fatty deposition. No suspicious liver lesions, intrahepatic or extrahepatic biliary ductal dilatation. Unremarkable gallbladder. SPLEEN: No abnormality. PANCREAS: Unremarkable. ADRENAL GLANDS: Unremarkable. GASTROINTESTINAL: Decompressed stomach. Nonobstructive bowel pattern. Unremarkable appendix. Moderately large fecal retention. Rectosigmoid anastomotic suture line. KIDNEYS, URETERS AND BLADDER: Stable parapelvic cysts. Kidneys are symmetric in size, shape and opacification. No suspicious renal parenchymal lesions or calcifications. No perinephric stranding. Urinary bladder is moderately distended with mild wall thickening. Clinical VASCULAR: Unremarkable. LYMPH NODES: Stable left para-aortic lymph node. No pathologic lymphadenopathy. PELVIC ORGANS: Uterus and adnexa are unremarkable. OSSEOUS AND SOFT TISSUE STRUCTURES: Unchanged 1 cm right breast nodular density, corresponding to stable focal glandular tissue on multiple previous mammograms. SPINAL COMPRESSION: Absent. CT/CT chest w IV con IMPRESSION: Stable 3 mm left lower lobe lung nodule. No CT evidence of metastatic disease in the chest, abdomen and pelvis.
--- NOTE | ~2023-10-25 | CT_ITS ---
STUDY: IV contrast-enhanced CT of the chest, abdomen and pelvis INDICATION: Follow-up colon cancer and pulmonary nodules COMPARISON: Multiple previous studies, most recent, 04/23/2023 TECHNIQUE: Continuous helical imaging obtained through the chest, abdomen and pelvis following injection of 85 mL Omnipaque 350 IV contrast without adverse effect. Oral contrast was also administered. Reconstructed images performed in the coronal and sagittal planes. Maximum intensity projection images of the chest also performed. This CT examination was performed using dose optimization techniques as appropriate, variously including the following: *Automated exposure control *Adjustment of mA and/or kV according to patient size (this includes techniques or standardized protocols for targeted exams where dose is matched to indication/reason for exam; i.e. extremities or head) *Use of iterative reconstruction technique TOTAL EXAM DLP: 76 and 230 mGy-cm, chest and abdomen/pelvis respectively FINDINGS: TICKET TAKER FERRYBOAT: Clear lungs. Nonobstructive bowel pattern. LUNGS: Trachea and bronchi are patent. Evaluation of the lung parenchyma limited due to motion. Mild atelectasis. NODULES: LLL: Stable 3 mm subpleural nodule, 7:216 PLEURA: No thickening, effusions or pneumothoraces. MEDIASTINUM/LYMPH NODES: No pathologic mediastinal or hilar lymphadenopathy. Nonspecific axillary lymph nodes. THYROID GLAND: Unremarkable to the extent seen. HEART AND GREAT VESSELS: Heart size within normal limits. No pericardial effusion is seen. Degree of coronary calcifications: Minimal. Nonaneurysmal aorta. Pulmonary arteries are not dilated. HEPATOBILIARY: Liver is normal in size and shape. Mild hypoattenuation to liver parenchyma with hypodensity adjacent to the gallbladder fossa, likely focal fatty deposition. No suspicious liver lesions, intrahepatic or extrahepatic biliary ductal dilatation. Unremarkable gallbladder. SPLEEN: No abnormality. PANCREAS: Unremarkable. ADRENAL GLANDS: Unremarkable. GASTROINTESTINAL: Decompressed stomach. Nonobstructive bowel pattern. Unremarkable appendix. Moderately large fecal retention. Rectosigmoid anastomotic suture line. KIDNEYS, URETERS AND BLADDER: Stable parapelvic cysts. Kidneys are symmetric in size, shape and opacification. No suspicious renal parenchymal lesions or calcifications. No perinephric stranding. Urinary bladder is moderately distended with mild wall thickening. Clinical VASCULAR: Unremarkable. LYMPH NODES: Stable left para-aortic lymph node. No pathologic lymphadenopathy. PELVIC ORGANS: Uterus and adnexa are unremarkable. OSSEOUS AND SOFT TISSUE STRUCTURES: Unchanged 1 cm right breast nodular density, corresponding to stable focal glandular tissue on multiple previous mammograms. SPINAL COMPRESSION: Absent. CT/CT abdomen pelvis w IV con IMPRESSION: Stable 3 mm left lower lobe lung nodule. No CT evidence of metastatic disease in the chest, abdomen and pelvis.
[2023-10-25] MEDS: iohexoL 350 MG/ML 100 ML INFUS..BTL 85 ML IV (09:58)
== END 2023-10-25 07:54 | disposition home or self-care (01) ==
LOC: HO.CT 07:53
PROVIDERS: PCP Internal Medicine; Visit Provider Internal Medicine Medical Oncology
DX: C18.7 Malignant neoplasm of sigmoid colon (principal)
CPT/HCPCS: 71260; 74177; Q9967

== ENCOUNTER 2024-04-18 07:57 | Outpatient (REF) | payer OTHER, SELFPAY ==
--- NOTE | ~2024-04-18 | CT_ITS ---
EXAMINATION: IV CONTRAST-ENHANCED CT OF THE CHEST, ABDOMEN AND PELVIS CLINICAL INFORMATION: Follow-up colon cancer and pulmonary nodules COMPARISON: Multiple previous studies, most recent on 10/25/2023. TECHNIQUE: Continuous helical imaging obtained through the chest, abdomen and pelvis following injection of 85 mL Omnipaque 350 IV contrast without adverse effect. Oral contrast was also administered. Reconstructed images performed in the coronal and sagittal planes. Maximum intensity projection images of the chest also performed. This CT examination was performed using dose optimization techniques as appropriate, variously including the following: *Automated exposure control. *Adjustment of mA and/or kV according to patient size (this includes techniques or standardized protocols for targeted exams where dose is matched to indication/reason for exam; i.e. extremities or head). *Use of iterative reconstruction technique. TOTAL EXAM DLP: 68 and 197 mGy-cm, chest and abdomen/pelvis, respectively. FINDINGS: LUNGS: Central airways patent. No infiltrates Mild right basilar atelectasis. NODULES: LLL: Stable slightly irregular 3 mm subpleural nodule (7:22 compare prior 7:216). No new or concerning lung nodules are seen to suggest metastatic disease. PLEURA: No thickening, effusions or pneumothoraces. MEDIASTINUM/LYMPH NODES: No pathologic mediastinal or hilar lymphadenopathy. Nonspecific axillary lymph nodes. THYROID GLAND: Unremarkable to the extent seen. HEART AND GREAT VESSELS: Heart size within normal limits. No pericardial effusion is seen. Minimal coronary calcium. Nonaneurysmal aorta. Pulmonary arteries are not dilated. HEPATOBILIARY: Liver is normal in size and shape with slightly decreased attenuation. No suspicious liver lesions, intrahepatic or extrahepatic biliary ductal dilatation. Unremarkable gallbladder. SPLEEN: No abnormality. PANCREAS: Unremarkable. ADRENAL GLANDS: Unremarkable. GASTROINTESTINAL: Decompressed stomach. Nonobstructive bowel pattern. Unremarkable appendix. Moderately large fecal retention. Rectosigmoid anastomotic suture line. KIDNEYS, URETERS AND BLADDER: Bilateral numerous parapelvic benign Bosniak class I renal cysts are noted unchanged which require no additional imaging or follow-up. No solid renal masses are seen. Kidneys are symmetric in size, shape and opacification. No suspicious renal parenchymal lesions or calcifications. No perinephric stranding. Urinary bladder is moderately distended with mild wall thickening. VASCULAR: Unremarkable. LYMPH NODES: Some small shotty retroperitoneal lymph nodes are unchanged and there is no pathologic lymphadenopathy. PELVIC ORGANS: Uterus and adnexa are unremarkable. OSSEOUS AND SOFT TISSUE STRUCTURES: Unremarkable. CT/CT abdomen pelvis w IV con IMPRESSION: 1. No evidence of metastatic disease within the chest, abdomen or pelvis. 2. Stable 3 mm left lower lobe pulmonary nodule. Fleischner guidelines were followed. Electronically signed by: Audie Harris MD 04/24/2024 10:32 PM EDT
[2024-04-18] MEDS: iohexoL 350 MG/ML 75 ML INFUS..BTL 85 ML IV (08:25)
== END 2024-04-18 07:58 | disposition home or self-care (01) ==
LOC: HO.CT 07:57
PROVIDERS: PCP Internal Medicine; Visit Provider Internal Medicine Medical Oncology
DX: C18.7 Malignant neoplasm of sigmoid colon (principal); Z85.038 Personal history of other malignant neoplasm of large intestine
CPT/HCPCS: 71260; 74177; Q9967

== ENCOUNTER 2024-08-07 12:28 | Outpatient (REF) | payer OTHER, SELFPAY ==
[2024-08-07 17:57] LABS: Cholesterol 251 mg/dL (<200); HDL Cholesterol 110 mg/dL (>40); LDL Cholesterol Calculated 127 mg/dL (<100); Triglycerides 70 mg/dL (<150)
[2024-08-07 22:50] LABS: Vitamin D 25-OH Total 43.6 ng/mL (>30)
== END 2024-08-07 12:29 | disposition home or self-care (01) ==
LOC: HO.HMGCLDS 12:28
PROVIDERS: PCP Internal Medicine; Visit Provider Internal Medicine
DX: Z00.01 Encounter for general adult medical examination with abnormal findings (principal); E78.5 Hyperlipidemia, unspecified; Z85.038 Personal history of other malignant neoplasm of large intestine; Z86.39 Personal history of other endocrine, nutritional and metabolic disease; Z78.0 Asymptomatic menopausal state; Z13.220 Encounter for screening for lipoid disorders
CPT/HCPCS: 36415; 80061; 82306; 96127

== ENCOUNTER 2024-08-07 12:28 | Outpatient (AMB) | payer OTHER, SELFPAY ==
--- NOTE | 2024-08-07 12:45 | MHC.PC.OV ---
Vital Signs 08/07/24 12:46 Height 5 ft Weight 112 lb BMI 21.9 BP 120/70 Blood Pressure Location Lt brachial Position Sitting Pulse 71 Pulse Source Pulse Oximeter Pulse Oximetry (%) 99 Oxygen Delivery Method Room Air Intake Visit Reasons: Annual PE Intake Note: Pt is here today for her PE: Last mammogram 10/02/23, papsmear 07/29/23, colonoscopy 08/01/21 Allergies No Known Allergies Allergy (Verified 08/10/24 11:21) Medication List - Last Reconciled 08/07/24 by Angella Luna MD No Known Home Meds Tobacco use date assessed: 08/07/24 Dental Screening Dental Screen Date: 08/07/24 Did you have a dental visit in the last 12 months?: Yes Did you have a dental problem in the last 6 months where you did not have access to dental care?: No Was dental information given to patient?: Patient has dentist HPI Annual PE HPI Details 54-year-old lady with history of colon cancer status post sigmoidectomy done by Dr. Fleming, has hyperlipidemia, here today for her physical exam. She is up-to-date with her breast cancer screening, with last mammogram done 10/02/2023 with negative findings. Her last pelvic exam and cervical cancer screening was done 07/29/2023 which came back with scant cellularity, patient however ups not to get a repeat Pap smear done this year will just get it done again on next year's physical exam. Her last colonoscopy screening was in [address] Fleming to be repeated again in 2025. She has been feeling well, with no complaints at present time. Does not want to get any vaccines. [facility] Medical History History of vitamin D deficiency Hyperlipidemia LDL goal <100 Refused influenza vaccine History of colon cancer Adenocarcinoma of sigmoid colon Menopause Annual visit for general adult medical examination with abnormal findings Ovarian cyst Sigmoid polyp GERD (gastroesophageal reflux disease) Irritable bowel syndrome (IBS) Surgical History S/P laparoscopic-assisted sigmoidectomy (~07/2020) History of esophagogastroduodenoscopy (EGD) Hx of colonoscopy Family History Father No problems noted. Mother No problems noted. Son No problems noted. Daughter No problems noted. Family/Other Breast cancer Social History Household Members: Children Housing: House Are you a primary career transition specialist to a significant other at home: No Do you presently have visiting nurse or other home services: No Alcohol intake: never Comment: sleeping Patient Tobacco Use Status: Never used Tobacco e-Cigarette/Vaping Use: Never Used Second Hand Smoke Exposure: No service: No Current occupational status: employed Cognitive needs: No Hearing needs: No Vision needs: No Questionnaire PHQ-9 Over the last 2 weeks, how often have you been bothered by any of the following problems? 1. Little interest or pleasure in doing things: not at all 2. Feeling down, depressed, or hopeless: not at all 3. Trouble falling or staying asleep, or sleeping too much: not at all 4. Feeling tired or having little energy: not at all 5. Poor appetite or overeating: not at all 6. Feeling bad about yourself - or that you are a failure or have let yourself or your family down: not at all 7. Trouble concentrating on things, such as reading the newspaper or watching television: not at all 8. Moving or speaking so slowly that other people could have noticed. Or the opposite - being so fidgety or restless that you have been moving around a lot more than usual: not at all 9. Thoughts that you would be better off or of hurting yourself in some way: not at all Total score: 0 Depression Screening Interpretation: Negative Depression Screening Done: Yes [id number] - PHQ-9 Billing: Yes Source: Developed by Drs. Tino Barkley, Sandi Sparks, Jeronimo Gamble and colleagues, with an educational zen from [employer]. Thrive Questionnaire Date Thrive assessed: 08/05/24 I am a: Patient What is your living situation today?: I have a steady place to live Within the past 12 months, did the food you bought not last and you didn't have the money to get more?: Never true Within the past 12 months, did you worry whether your food would run out before you got money to buy more?: Never true Do you have trouble paying for medicines?: No Do you have trouble getting transportation to medical appointments?: No Do you have trouble paying your heating and electricity bill?: No Do you have trouble taking care of your child, family member or friend?: No Do you have trouble with day-to-day activities such as bathing, preparing meals, shopping, managing finances, etc.?: No Are you currently unemployed and looking for a job?: No Are you interested in more education?: Yes Please select the resources that you would like help with: None Currently or been in a relationship where the following occur: No concerns reported THRIVE Score: 0 AUDIT C Alcohol Use Questionnaire (AUDIT-C) 1. How often do you have a drink containing alcohol?: Never 2. How many drinks containing alcohol do you have on a typical day when you are drinking?: 1 or 2 3. How often do you have six or more drinks on one occasion?: Never Total Score: 0 ABHAY-7 AMB Questionnaire ABHAY-7 Date ABHAY - 7 assessed: 07/28/23 Feeling nervous, anxious, or on edge: 0 = Not at all Not being able to stop or control worryin = Not at all Worrying too much about different things: 0 = Not at all Trouble relaxin = Not at all Being so restless that it is hard to sit still: 0 = Not at all Becoming easily annoyed or irritable: 0 = Not at all Feeling afraid as if something awful might happen: 0 = Not at all Total ABHAY-7 score (0-4 normal; 5-9 mild; 10-14 moderate; 15-21 severe): 0 Source: Developed by Drs. Tino Barkley, Sandi Sparks, Jeronimo Gamble and colleagues, with an educational zen from [employer]. ABHAY-7 Assessment Billing ABHAY-7 Assessment Tool: ABHAY-7 Assessment 96663 Review of Systems Const Denies chills and Denies fever(s) Eyes Details: [facility] , wears cheaters ENT Details: dental cleaning lynda 6 months Reports no additional complaints Card Denies chest pain, Denies rapid heart rate, Denies irregular heart rhythm, Denies dyspnea and Denies dyspnea on exertion Resp Denies cough, Denies dyspnea and Denies dyspnea on exertion GI Denies abdominal pain, Denies melena, Denies bloating, Denies hematochezia, Denies change in bowel habits, Denies change in stool character and Denies heartburn Denies hematuria, Denies difficulty voiding, Denies hot flashes, Denies nipple discharge, Denies dysuria, Denies urinary incontinence and Denies vaginal discharge Musc Denies back pain and Denies limited range of motion Skin/Breast Denies breast pain, Denies breast mass and Denies nipple discharge Neuro Reports no additional complaints, Denies focal weakness and Denies convulsions Psych Denies depression and Denies mood swings Endo Reports no additional complaints Baltazar/Lymph Denies easy bleeding and Denies easy bruising Aller/Immun Reports no additional complaints Physical exam (Primary Care) Vital Signs: Last Vital Signs Pulse 71 08/07/24 12:46 BP 120/70 08/07/24 12:46 Pulse Ox 99 08/07/24 12:46 Oxygen Delivery Method Room Air 08/07/24 12:46 BMI result Body Mass Index 21.9 Tobacco/Smoking Status: Tobacco use Status Tobacco use date assessed 08/07/24 08/07/24 12:47 Patient Tobacco Use Status Never used Tobacco 08/07/24 12:47 e-Cigarette/Vaping Use Never Used 08/07/24 12:47 PHQ-9: PHQ-9 Score PHQ-9: Total score 0 08/07/24 13:00 Depression Screening Interpretation: Negative Thrive Assessment: Date of Thrive Assessment Date Thrive assessed 08/05/24 08/07/24 12:47 Currently or been in a relationship where the following occur: No concerns reported Const General: comfortable and no acute distress Orientation/consciousness: patient oriented x3 Limitations: no limitations HENMT Ears: hearing grossly normal bilaterally, external ears normal, TM's normal bilaterally and EAC's normal General nose exam: Normal external nose present and No nasal discharge present Mouth: Normal oral and palatal mucosa present and moist mucous membranes Throat: Yes posterior oropharynx normal Eyes General: appearance normal, both eyes and all related structures Conjunctivae: conjunctivae normal Pupils: Equal, round and reactive pupils present EOM: EOMs intact bilaterally Neck Neck: Yes full ROM, Yes no lymphadenopathy and Yes supple Thyroid: Thyroid normal Chest Breast/axilla palpation: normal palpation of the breasts Resp Effort & Inspection: normal respiratory effort and able to speak in complete sentences Auscultation: clear to auscultation bilaterally Cardio Rate: regular rate Rhythm: regular rhythm Heart sounds: S1 normal heart sound present and S2 normal heart sound present GI Inspection: Yes normal to inspection Palpation (GI): Soft to palpation, Firmness to palpation present (GI), nontender and no masses Auscultation: normal bowel sounds General: Yes no CVA tenderness Back/Spine/Pelvis Back: no CVA tenderness Cervical Spine: cervical ROM normal Thoracic/Lumbar Spine: thoracic and lumbar spine normal to inspection Skin General skin exam: no rashes or lesions noted Neuro General: patient oriented x3, gait normal, tone normal, moves all extremities, Normal light touch and pain sensation and no focal motor deficits Cranial nerves: Yes Equal, round and reactive pupils present Cognition (Neuro): normal cognition Gait exam (Neuro): Normal gait present Motor exam (neuro): 5/5 motor strength present throughout Extrem General: Yes full ROM, Yes no joint enlargement, Yes no pedal edema, Yes no calf tenderness and Yes normal gait Psych Appearance: grossly normal Mental Status: mental status grossly normal Speech and movement: Normal speech and movement present Affect: normal affect Attitude: cooperative Thought process: Normal thought process present Thought content: Normal thought content present Results Reviewed Results Reviewed: Name: Jose Quintana Age/Sex: 54/F : 1970 Unit#: [id number] Attend Dr: Myra Tapia MD Re06/20/24 Status: REG [facility] Location: .ONC Disch: SPEC : [id number] JUNI: 06/20/24 STATUS: COMP REQ : [id number] RECD: 06/20/[address]: Myra Tapia MD COMP: 06/20/24 ENTERED: 06/20/[address]: Angella Luna MD ORDERED: CBC Auto Diff Test Result Flag Reference WBC 5.1 4.8-10.8 X10*3/uL RBC 3.89 L 4.20-5.50 X10*6/uL HGB 12.4 12.0-16.0 g/dl HCT 36.5 L 37.0-47.0 % MCV 93.8 80.0-98.0 fL MCH 31.9 27.0-33.0 pg MCHC 34.0 31.0-35.0 g/dl RDW 12.9 11.0-16.0 % PLT 245 # 160-400 X10*3/uL MPV 9.5 9.4-12.3 fL Neut Pct Auto 61.1 45-73 % ImGran Pct Auto 0.4 0.0-0.4 % Lymp Pct Auto 29.6 20-40 % Weston Pct Auto 7.5 2-11 % Eos Pct Auto 1.0 0-4 % Baso Pct Auto 0.4 0-2 % NRBC Pct Auto 0.0 0.0-0.2 /100WBC ANC Neut Abs # 3.1 2.0-8.3 x10*3/uL ImGran Abs Auto 0.02 0.00-0.03 X10*3/uL Lymph Abs Auto 1.5 1.2-4.9 X10*3/uL Weston Abs Auto 0.4 0.1-1.2 X10*3/uL Eos Abs Auto 0.1 0.0-0.4 X10*3/uL Baso Abs Auto 0.0 0.0-0.2 X10*3/uL NRBC Abs Auto 0.000 0.0-0.012 X10*3/uL Name: Jose Quintana Age/Sex: 54/F : 1970 Unit#: [id number] Attend Dr: Myra Tapia MD Re06/20/24 Status: REG [facility] Disch: SPEC : [id number] JUNI: 06/20/24 STATUS: COMP REQ : [id number] RECD: 06/20/24 [facility] DR: Myra Tapia MD COMP: 06/20/24 ENTERED: 06/20/[address] [facility] [address]: Angella Luna MD ORDERED: CMP, CEA/R Test Result Flag Reference Sodium 139 135-145 mmol/L Potassium 4.4 3.3-5.1 mmol/L CL 106 96-108 mmol/L CO2 26 22-29 mmol/L Gap 11 L 12-20 BUN 16 9-16 mg/dL Creat 0.68 0.5-1.4 mg/dL Estimated CrCl 67.1 Provided height and weight: 152.4 cm, 49.5 kg. eGFR (calculated from the MDRD study equation) and eCrCl (calculated from the Cockcroft-Gault equation) are based on different parameters and may not yield comparable results. If eCrCl result is absurd, please check patient's height/weight. EGFR > 60 NOTE: For -[place] individuals, multiply the result by 1.210. Chronic Kidney Disease: Estimated GFR < 60 mL/min/1.73m2 Severe Kidney Disease: Estimated GFR < 15 mL/min/1.73m2 Glucose, Random 87 60-115 mg/dL CA 9.6 8.4-10.2 mg/dL Total Bili 0.4 0.0-1.0 mg/dL AST (GOT) 20 5-31 U/L ALT (GPT) 14 0-31 U/L Protein, Total 7.0 6.5-8.0 g/dL Alb 4.3 3.5-5.0 g/dL Alk Phos 65 39-117 U/L CEA < 1.73 ng/mL CEA Reference Range: 93.4% Non-Smokers = 0.0-3.0 ng/mL 95.6% Smokers = 0.0-5.0 ng/mL Coding Level of Care Code Est Pt Prev Care 40-64y(78036) Diagnoses Annual visit for general adult medical examination with abnormal findings Z00.01 Hyperlipidemia LDL goal <100 E78.5 History of vitamin D deficiency Z86.39 History of colon cancer Z85.038 Additional Codes PHQ-9 - 81310 - PHQ-9 Billing: Yes ([id number]) ABHAY-7 Assessment Billing - ABHAY-7 Assessment Tool: ABHAY-7 Assessment 64188 ([id number]) Assessment & Plan Assessment & Plan (1) Annual visit for general adult medical examination with abnormal findings: Code(s): Z00.01 - Encounter for general adult medical examination with abnormal findings Category: Medical Plan: Will check fasting lipid panel vitamin-D. Continue regular dental visit every 6 months and regular eye exams, at least every 2 years. Take adequate calcium in diet and vitamin-D 3 at 2000 IU per cap once a day, in addition to weight-bearing exercises to help maintain good muscle tone and weight control. Instructed to do self-breast exam, and continue t yearly mammogram. Last Pap smear done a year ago showed an sent unsatisfactory findings with scant cellularity, patient declines repeating Pap this year will repeat it again next year's visit. Patient does not want to get any vaccines. Last colonoscopy was in 2020, due for a recheck again in [address] Fleming (2) Hyperlipidemia LDL goal <100: Code(s): E78.5 - Hyperlipidemia, unspecified Category: Medical Plan: Fasting lipid panel ordered (3) History of vitamin D deficiency: Code(s): Z86.39 - Personal history of other endocrine, nutritional and metabolic disease Category: Medical Plan: Repeat vitamin-D level ordered (4) History of colon cancer: Code(s): Z85.038 - Personal history of other malignant neoplasm of large intestine Category: Medical Plan: Currently followed by Oncology, with latest CEA level negative. Due for repeat colonoscopy again in 2025,, followed by Dr. Fleming Orders: Orders Lipid Panel 08/07/24 E78.5 - Hyperlipidemia, unspecified, Z00.01 - Encounter for general adult medical examination with abnormal findings, Z13.220 - Encounter for screening for lipoid disorders, Z78.0 - Asymptomatic menopausal state, Z86.39 - Personal history of other endocrine, nutritional and metabolic disease Vitamin D 25-OH Total 08/07/24 E78.5 - Hyperlipidemia, unspecified, Z00.01 - Encounter for general adult medical examination with abnormal findings, Z13.220 - Encounter for screening for lipoid disorders, Z78.0 - Asymptomatic menopausal state, Z86.39 - Personal history of other endocrine, nutritional and metabolic disease
[2024-08-07 12:46] VITALS: BP 120/70; PULSE 71; O2SAT 99; BMI 21.9
== END 2024-08-07 13:46 | disposition home or self-care (01) ==
PROVIDERS: PCP Internal Medicine; Visit Provider Internal Medicine
DX: Z00.01 Encounter for general adult medical examination with abnormal findings (principal); E78.5 Hyperlipidemia, unspecified; Z86.39 Personal history of other endocrine, nutritional and metabolic disease; Z85.038 Personal history of other malignant neoplasm of large intestine

== ENCOUNTER 2024-08-10 11:06 | Outpatient (AMB) | payer OTHER, SELFPAY ==
--- NOTE | 2024-08-10 11:16 | A.OFFVIS_ITS ---
Vital Signs 08/10/24 11:20 Height 5 ft Weight 112 lb BMI 21.9 Intake Visit Reasons: colonoscopy screening Intake Note: This patient presents for colonoscopy screening. Pt c/o; reports no complaints. 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 She had und ergone sigmoid resection for a T1 N1 adenocarcinoma last July,. She also underwent adjuvant chemotherapy.She currently denies any significant complaints. She has good bowel movements. She denies seeing blood per rectum. Her last colonoscopy was in 2020. [facility] Medical History History of vitamin D deficiency Hyperlipidemia LDL goal <100 Refused influenza vaccine History of colon cancer Adenocarcinoma of sigmoid colon Menopause Annual visit for general adult medical examination with abnormal findings Ovarian cyst Sigmoid polyp GERD (gastroesophageal reflux disease) Irritable bowel syndrome (IBS) Surgical History S/P laparoscopic-assisted sigmoidectomy (~07/2020) History of esophagogastroduodenoscopy (EGD) Hx of colonoscopy Family History Father No problems noted. Mother No problems noted. Son No problems noted. Daughter No problems noted. Family/Other Breast cancer Social History Household Members: Children Housing: House Are you a primary rn intensive care unit to a significant other at home: No Do you presently have visiting nurse or other home services: No Alcohol intake: never Comment: sleeping Patient Tobacco Use Status: Never used Tobacco e-Cigarette/Vaping Use: Never Used Second Hand Smoke Exposure: No service: No Current occupational status: employed Cognitive needs: No Hearing needs: No Vision needs: No Review of Systems Const Denies chills and Denies fever(s) Card Denies chest pain, Denies dyspnea and Denies dyspnea on exertion Resp Denies cough, Denies dyspnea and Denies dyspnea on exertion GI Denies hematochezia and Denies change in bowel habits Denies hematuria Musc Denies back pain and Denies limited range of motion Neuro Denies focal weakness and Denies convulsions Psych Denies depression and Denies mood swings Physical Exam Vital Signs: BMI result Body Mass Index 21.9 Const General: comfortable and no acute distress Orientation/consciousness: patient oriented x3 Neck Neck: Yes no lymphadenopathy Resp Auscultation: clear to auscultation bilaterally Cardio Rhythm: regular rhythm GI Palpation (GI): Soft to palpation, nontender and no guarding Neuro General: patient oriented x3 Assessment & Plan Assessment & Plan (1) History of colon cancer: Code(s): Z85.038 - Personal history of other malignant neoplasm of large intestine Category: Medical Plan: She continues to do well after sigmoid resection for colon cancer last July, She is scheduled to undergo surveillance colonoscopy. I reviewed with her the technique of this procedure. I explained the risks including but not limited to bleeding and perforation, as well as the benefits and alternatives She understands and agrees to proceed. Her daughter was with her during the visit. Coding Level of Care Code Est Pt Level 3 (88630) Diagnoses History of colon cancer Z85.038
[2024-08-10 11:20] VITALS: BMI 21.9
== END 2024-08-10 11:33 | disposition home or self-care (01) ==
PROVIDERS: PCP Internal Medicine; Visit Provider Surgery
DX: Z85.038 Personal history of other malignant neoplasm of large intestine (principal)
CPT/HCPCS: 99213

== ENCOUNTER 2024-10-06 11:22 | Day surgery (SDC) | payer OTHER, SELFPAY ==
[2024-10-04 08:21] VITALS: BMI 21.9
[2024-10-06 12:26] VITALS: BMI 21.6
[2024-10-06 12:28] VITALS: BP 145/71; PULSE 71; RESP 16; TEMP 36.8; O2SAT 100
[2024-10-06] MEDS: Lactated Ringers 1,000 ML 80 ML IVCONT (12:40)
--- NOTE | 2024-10-06 14:19 | P.CONAN_ITS ---
HPI - Anesthesia Eval Consult details Narrative: colon screen [facility] Active Problems Active Problems: All Active Problems History of vitamin D deficiency (Acute) Hyperlipidemia LDL goal <100 (Acute) Refused influenza vaccine (Acute) History of colon cancer (Acute) Menopause (Acute) Annual visit for general adult medical examination with abnormal findings (Acute) Past Medical History Medical History History of vitamin D deficiency Hyperlipidemia LDL goal <100 Refused influenza vaccine History of colon cancer Adenocarcinoma of sigmoid colon Menopause Annual visit for general adult medical examination with abnormal findings Ovarian cyst Sigmoid polyp GERD (gastroesophageal reflux disease) Irritable bowel syndrome (IBS) Family History Family History Father No problems noted. Mother No problems noted. Son No problems noted. Daughter No problems noted. Family/Other Breast cancer Family history of problems with anesthesia: No Surgical History Surgical History S/P laparoscopic-assisted sigmoidectomy (~07/2020) History of esophagogastroduodenoscopy (EGD) Hx of colonoscopy History of Problems with Anesthesia: No (Only MAC anesthesia) Social History Social History Household Members: Children Housing: House Are you a primary respiratory care instructor to a significant other at home: No Do you presently have visiting nurse or other home services: No Alcohol intake: never Comment: sleeping Patient Tobacco Use Status: Never used Tobacco e-Cigarette/Vaping Use: Never Used Second Hand Smoke Exposure: No Use of substances other than those prescribed or required for medical reasons: No Are you DNR?: No Advance Directives: No Advance Directives Information Provided: Yes Nutrition Risks: No Nutritional Risk Patient : No service: No Current occupational status: employed Cognitive needs: No Hearing needs: No Vision needs: No Meds Allergies Allergy/AdvReac Type Severity Reaction Status Date / Time No Known Allergies Allergy Verified 08/10/24 11:21 Active Medications: Current Medications Lactated Ringer's (Lr) 1,000 mls @ 80 mls/hr IVCONT .[id number] ENRIQUE Exam Height,Weight and Vital Signs: Height 5 ft Weight 50.1 kg Last Vital Signs Temp 98.3 F 10/06/24 12:28 Pulse 71 10/06/24 12:28 Resp 16 10/06/24 12:28 BP 145/71 H 10/06/24 12:28 Pulse Ox 100 10/06/24 12:28 O2 Del Method Room Air 10/06/24 12:28 Airway Mallampati Class: II TM Dist: >3cm Neck ROM: Full Heart: rrr Lungs: cta Assessment and Plan Assessment Anesthesia Assessment: Anesthesia Plan Discussed Final Anesthetic Review Family History of Problems with Anesthesia: No History of Problems with Anesthesia: No (Only MAC anesthesia) NPO: Yes ASA Class: II Final Preanesthetic Review: No Changes in Pt Med Stat, Meds/Allgs Chart Reviewed, Consent Obtained/Reviewed and Anes Risks/Benef Reviewed Patient Risk: Low Procedure Risk: Low Anesthetic Plan Anesthetic Plan: MAC: Disposition: Standard PACU
--- NOTE | 2024-10-06 14:27 | MHC.SHP ---
Pre-Procedural Eval Section A - 24 Hr Update-Section A only Date of Service: 10/06/24 Section B - Complete if H&P > 30 days Chief Complaint: Personal history of other malignant neoplasm Details of Present Illness: Has a history of colon cancer in 2020, here for surveillance colonoscopy Relevant Family History (Specify if Yes): No Relevant Social History: None Present Medications: see Short Stay Collaborative assessment Medical History: Significant History (History of colon cancer) History of Previous Operations: Relevant previous surgery/procedure and date(s) (Sigmoid resection for colon cancer) Allergies: Allergies Allergy/AdvReac Type Severity Reaction Status Date / Time No Known Allergies Allergy Verified 08/10/24 11:21 Review of Systems Sugical H&P ROS: Negative: Constitution, Cardiovascular and Respiratory Exam Surgical H&P Exam: Normal: Heart, Normal: Lungs and Normal: Abdomen Plan Diagnosis/Plan: Unchanged I have reviewed the history and physical and performed a pertinent physical examination on my patient. No changes have occurred unless specified. Time Spent With Patient Time: Total time managing care of this patient today ____ minutes.
--- NOTE | 2024-10-06 14:48 | W.PM.OPN ---
Operative Note Operative Note Date of Service: 10/06/24 Narrative: Preop diagnosis: History of colon cancer Postop diagnosis: Normal colonoscopy findings, anastomosis seen in the sigmoid Procedure: Colonoscopy Surgeon: Alejandro Fleming MD The patient is a 54 year female who had undergone sigmoid resection for a T1 N1 adenocarcinoma in 2019. She is here for surveillance colonoscopy. She understood the technique of the planned procedure as was the risks, benefits, and alternatives The patient was brought to the operating room and placed in left lateral decubitus position under monitored anesthesia care. A surgical time-out was done. A full digital rectal exam was done and this did not reveal any significant anal lesions. The tip of the Olympus colonoscope was gently introduced through the anal orifice advanced with insufflation all the way to the cecum. The cecum was intubated. The cecum was identified by visualization of the ileocecal valve as well as the appendiceal orifice. The cecal mucosa was unremarkable. The scope was gradually withdrawn with careful examination of the entire colonic mucosa being done with scope withdrawal. The patient had adequate bowel prep so it was unlikely that any lesion may have been missed. There was note of a tattoo marking in the hepatic flexure without any lesions. The anastomosis was seen at level 15 cm and there were no lesions around this. The rectum was reached and there were no lesions seen. The anal canal was unremarkable. The scope was then withdrawn completely with desufflation The patient tolerated the procedure well. There were no immediate complications. Her next colonoscopy should be within the next 5 years.
[2024-10-06 14:53] VITALS: BP 92/47; PULSE 85; RESP 16; TEMP 36.7; O2SAT 100
[2024-10-06 15:08] VITALS: BP 113/69; PULSE 66; RESP 16; TEMP 36.8; O2SAT 100
[2024-10-06 15:22] VITALS: BP 126/67; PULSE 67; RESP 16; TEMP 36.8; O2SAT 100
== END 2024-10-06 15:29 | disposition home or self-care (01) ==
PROVIDERS: PCP Internal Medicine; Visit Provider Surgery
PROC: 0DBE8ZZ Excision of Large Intestine, Via Natural or Artificial Opening Endoscopic (ICD-10-PCS; principal; 2024-10-06 15:50)
DX: Z12.11 Encounter for screening for malignant neoplasm of colon (principal); Z85.038 Personal history of other malignant neoplasm of large intestine; Z92.21 Personal history of antineoplastic chemotherapy; Z90.49 Acquired absence of other specified parts of digestive tract; Z98.0 Intestinal bypass and anastomosis status; K58.9 Irritable bowel syndrome, unspecified; K21.9 Gastro-esophageal reflux disease without esophagitis; E78.5 Hyperlipidemia, unspecified; E55.9 Vitamin D deficiency, unspecified
CPT/HCPCS: 45378; J2003; J2704

== ENCOUNTER → 2024-10-06 11:22 | Outpatient (BNV) | payer OTHER, SELFPAY | PROVIDERS: PCP Internal Medicine; Visit Provider Surgery | DX: Z12.11 Encounter for screening for malignant neoplasm of colon (principal); Z85.038 Personal history of other malignant neoplasm of large intestine | CPT/HCPCS: 45378 ==

== ENCOUNTER 2024-10-13 09:52 | Outpatient (REF) | payer OTHER, SELFPAY ==
--- NOTE | ~2024-10-13 | MM_ITS ---
EXAMINATION: MM SCREENING DIGITAL BREAST TOMOSYNTHESIS, BILATERAL CLINICAL INFORMATION: Screening. Asymptomatic. COMPARISON: Mammography: Comparison is made with available priors TECHNIQUE: Digital breast mammography with tomosynthesis is performed in both the craniocaudal and mediolateral oblique views along with computer-aided detection (CAD). FINDINGS: There are scattered areas of fibroglandular density (ACR BI-RADS breast composition Category b). Focal asymmetry upper central breast middle depth right breast stable dating back to 2019. There are no significant masses, abnormal calcifications, or other abnormalities. MM/MM tomosynthesis screening BI IMPRESSION: No mammographic evidence of malignancy. ASSESSMENT: BI-RADS BI-RADS 2 - Benign Findings RECOMMENDATION: Routine annual mammography screening. 1 year F/U This examination should not preclude the clinical evaluation of a suspicious palpable abnormality. This patient's information was entered into a reminder system with a target due date for their next mammogram. Electronically signed by: Matilda Meyers DO 10/16/2024 05:06 PM HARJEET
== END 2024-10-13 09:53 | disposition home or self-care (01) ==
LOC: HO.MAMMO 09:52
PROVIDERS: PCP Internal Medicine; Visit Provider Internal Medicine
DX: Z12.31 Encounter for screening mammogram for malignant neoplasm of breast (principal)
CPT/HCPCS: 77063; 77067

== ENCOUNTER → 2024-10-13 10:00 | Outpatient (BNV) | payer OTHER, SELFPAY | PROVIDERS: PCP Internal Medicine; Visit Provider Internal Medicine | DX: Z12.31 Encounter for screening mammogram for malignant neoplasm of breast (principal) | CPT/HCPCS: 77063; 77067 ==

== ENCOUNTER 2024-10-19 10:58 | Outpatient (AMB) | payer OTHER, SELFPAY ==
--- NOTE | 2024-10-19 11:19 | MHC.OFFVIS ---
Vital Signs 10/19/24 11:23 Height 5 ft Weight 113 lb BMI 22.1 BP 124/67 Blood Pressure Location Rt brachial Position Sitting Pulse 67 Intake Visit Reasons: S/P Colonoscopy, poss polypectomy Intake Note: This patient presents for follow-up status post colonoscopy. Pt c/o; reports no complaints. Ion Exchange Operator Required: No Accompanied by: Self / Same As Patient Allergies No Known Allergies Allergy (Verified 10/19/24 11:24) Medication List - Last Reconciled 10/19/24 by Alejandro Fleming MD sodium,potassium,mag sulfates 17.5-3.13-1.6 gram (Suprep Bowel Prep Kit) DILUTE; drink full amount early evening before AND next morning at least 2 hr before procedure; follow w 960 mL water PO HPI HPI S/P Colonoscopy, poss polypectomy: Details: She had undergone colonoscopy for screening in view of her personal history of colon cancer last 10/06/2024. She tolerated the procedure well. She currently denies significant complaints. [facility] Medical History History of vitamin D deficiency Hyperlipidemia LDL goal <100 Refused influenza vaccine History of colon cancer Adenocarcinoma of sigmoid colon Menopause Annual visit for general adult medical examination with abnormal findings Ovarian cyst Sigmoid polyp GERD (gastroesophageal reflux disease) Irritable bowel syndrome (IBS) Surgical History History of colonoscopy (~10/06/24) S/P laparoscopic-assisted sigmoidectomy (~07/2020) History of esophagogastroduodenoscopy (EGD) Hx of colonoscopy Family History Father No problems noted. Mother No problems noted. Son No problems noted. Daughter No problems noted. Family/Other Breast cancer Social History Household Members: Children Housing: House Are you a primary associate director career services to a significant other at home: No Do you presently have visiting nurse or other home services: No Alcohol intake: never Patient Tobacco Use Status: Never used Tobacco e-Cigarette/Vaping Use: Never Used Second Hand Smoke Exposure: No service: No Current occupational status: employed Cognitive needs: No Hearing needs: No Vision needs: No Review of Systems Const Denies chills and Denies fever(s) Card Denies chest pain, Denies dyspnea and Denies dyspnea on exertion Resp Denies cough, Denies dyspnea and Denies dyspnea on exertion GI Denies hematochezia and Denies change in bowel habits Denies hematuria Musc Denies back pain and Denies limited range of motion Neuro Denies focal weakness and Denies convulsions Psych Denies depression and Denies mood swings Physical Exam Vital Signs: Last Vital Signs Pulse 67 10/19/24 11:23 BP 124/67 10/19/24 11:23 BMI result Body Mass Index 22.1 Const General: comfortable and no acute distress Resp Effort & Inspection: normal respiratory effort GI Palpation (GI): Soft to palpation, not firm and nontender Assessment & Plan Assessment & Plan (1) History of colon cancer: Code(s): Z85.038 - Personal history of other malignant neoplasm of large intestine Category: Medical Plan: Status post colonoscopy. I did not find any polyps or any lesions. She had good bowel prep. I told her that his colonoscopy may be in the next 5 years I also told her to continue to follow up with Dr. Tapia of Oncology as part of surveillance. Coding Level of Care Code Est Pt Level 2 (34063) Diagnoses History of colon cancer Z85.038
[2024-10-19 11:23] VITALS: BP 124/67; PULSE 67; BMI 22.1
== END 2024-10-19 11:33 | disposition home or self-care (01) ==
PROVIDERS: PCP Internal Medicine; Visit Provider Surgery
DX: Z85.038 Personal history of other malignant neoplasm of large intestine (principal)
CPT/HCPCS: 99212

== ENCOUNTER → 2024-10-19 10:58 | Outpatient (BNVA) | payer OTHER, SELFPAY | PROVIDERS: PCP Internal Medicine; Visit Provider Surgery ==

== ENCOUNTER 2025-01-16 11:22 | Outpatient (REF) | payer OTHER, SELFPAY ==
--- NOTE | ~2025-01-16 | CT_ITS ---
EXAMINATION: CT CHEST WITH CONTRAST CLINICAL INFORMATION: Follow-up colon cancer COMPARISON: 04/18/2024 TECHNIQUE: Multidetector volumetric CT imaging of the chest was obtained after the administration of 85 mL of Omnipaque 350 intravenous contrast without immediate adverse reactions. Axial MIP volume rendering provided. Sagittal and coronal reformatted images were obtained. This CT examination was performed using dose optimization techniques as appropriate, variously including the following: *Automated exposure control *Adjustment of mA and/or kV according to patient size (this includes techniques or standardized protocols for targeted exams where dose is matched to indication/reason for exam; i.e. extremities or head) *Use of iterative reconstruction technique DLP: 337 mGY*cm FINDINGS: LUNGS: Series 4 image 65/145: Posterolateral left lower lobe pulmonary nodule is 2 mm in diameter with peripheral spiculations. It appears stable. There are no new pulmonary nodules. Large airways are patent and clear. There is no bronchiectasis. MEDIASTINUM: No mediastinal or hilar adenopathy is evident. PLEURA: There is no pleural effusion. No pleural mass or thickening. AXILLA: No lymphadenopathy. OSSEOUS STRUCTURES: Unremarkable. CT/CT chest w IV con IMPRESSION: Stable chest with 2 mm left lower lobe nodule with peripheral spiculations. No new abnormalities. Electronically signed by: Kirt Connors MD 01/16/2025 02:50 PM EDT
--- NOTE | ~2025-01-16 | CT_ITS ---
EXAMINATION: CT ABDOMEN AND PELVIS WITH CONTRAST CLINICAL INFORMATION: Follow-up sigmoid carcinoma DLP: 337 mGY*cm COMPARISON: April 18, 2024 TECHNIQUE: Multidetector volumetric images were obtained from the superior aspect of the liver through the pubic symphysis following administration 85 mL of Omnipaque 350 intravenous contrast. Sagittal and coronal reformatted images were obtained on the technologist's workstation. Oral contrast: Present This CT examination was performed using dose optimization techniques as appropriate, variously including the following: *Automated exposure control *Adjustment of mA and/or kV according to patient size (this includes techniques or standardized protocols for targeted exams where dose is matched to indication/reason for exam; i.e. extremities or head) *Use of iterative reconstruction technique FINDINGS: LUNG BASES: See chest CT dictation LIVER, GALLBLADDER, AND BILIARY TREE: The liver is normal in size, shape, and attenuation. No focal hepatic lesion or biliary ductal dilatation is present. The gallbladder is unremarkable with no evidence of radiopaque gallstones, gallbladder wall thickening, or obvious pericholecystic inflammatory changes. PANCREAS: Unremarkable. SPLEEN: Unremarkable. ADRENAL GLANDS: Unremarkable. KIDNEYS AND URETERS: Stable appearance of numerous simple parapelvic cysts are noted. No hydronephrosis, hydroureter, or calculi seen. No perinephric stranding. BLADDER: Unremarkable. GASTROINTESTINAL TRACT: End to end anastomosis is noted at the rectosigmoid junction. There is no appreciable wall thickening. Moderate stool is again noted throughout the colon. The appendix is mostly gas-filled and thin-walled. ABDOMINAL WALL: No significant hernia is appreciated. LYMPH NODES: No adenopathy. VASCULAR: Unremarkable. PELVIC VISCERA: Uterus and adnexa are unremarkable. OSSEOUS STRUCTURES: No lytic or blastic lesions are evident. CT/CT abdomen pelvis w IV con IMPRESSION: Stable CT abdomen and pelvis without new abnormality. Postsurgical changes with rectosigmoid anastomosis. Electronically signed by: Kirt Connors MD 01/16/2025 03:07 PM EDT
[2025-01-16] MEDS: iohexoL 350 MG/ML 100 ML INFUS..BTL IV (12:58)
== END 2025-01-16 11:23 | disposition home or self-care (01) ==
LOC: HO.CT 11:22
PROVIDERS: PCP Internal Medicine; Visit Provider Internal Medicine Medical Oncology
DX: C18.7 Malignant neoplasm of sigmoid colon (principal)
CPT/HCPCS: 71260; 74177; Q9967

== ENCOUNTER → 2025-01-16 11:24 | Outpatient (BNV) | payer OTHER, SELFPAY | PROVIDERS: PCP Internal Medicine; Visit Provider Radiology Diagnostic Radiology | DX: C18.7 Malignant neoplasm of sigmoid colon (principal); R91.1 Solitary pulmonary nodule | CPT/HCPCS: 71260; 74177 ==